=== PATIENT | female | born 1940 | race Caucasian/White ===

== ENCOUNTER 2021-08-07 11:57 | Inpatient (IN) | payer MEDICARE, SELFPAY ==
[2021-08-07] VITALS (34 sets, daily range): BP systolic 121–151; BP diastolic 52–73; PULSE 64–96; RESP 15–34; TEMP 36.2–37.2; O2SAT 89–99; BMI 38.1
--- NOTE | ~2021-08-07 | XR_ITS ---
XR chest 1V portable 08/10/2021 05:23 Indication: CHF. Dyspnea. Procedure: AP portable chest Comparison: 08/07/2021 Findings: Cardiomegaly. Pacemaker leads are stable. Diffuse bilateral airspace disease has progressed , consistent with edema. Small left pleural effusion. No pneumothorax. Impression: 1: Cardiomegaly with worsening pulmonary edema. Reviewed, dictated and finalized at location A. Impression: 1: Cardiomegaly with worsening pulmonary edema.
--- NOTE | ~2021-08-07 | BM_ITS ---
EXAMINATION: CCL bone marrow asp w bx diag DATE: 08/14/2021 13:09 INDICATION: Pancytopenia. TECHNIQUE: A time-out was performed to verify the patient's name, date of , and procedure to b e performed. The procedure including the risks, benefits, and alternatives was discussed with the pat ient. Risks discussed included bleeding and infection. The patient understood the risks and agreed to proceed. The skin overlying the left ilium was prepped and draped in usual sterile fashion. Anesth etic was administered with 1% lidocaine subcutaneously. An 11 gauge needle was inserted into the iliu m with fluoroscopic guidance. Bone marrow was aspirated. An 8 gauge needle was then inserted into the ilium with fluoroscopic guidance. A core bone marrow biopsy was obtained. There were no immediate co mplications. Fluoroscopy exposure time was 0.0 minutes. The total number of images was 16. FINDINGS: Real-time fluoroscopy demonstrates a marker overlying the left posterior superior iliac spi ne. IMPRESSION: 1. Fluoro-guided bone marrow aspiration. 2. Fluoro-guided bone marrow core biopsy. Reviewed, dictated and finalized at location A.
--- NOTE | ~2021-08-07 | XR_ITS ---
EXAMINATION: XR chest 2V EXAM DATE: 08/07/2021 17:26 INDICATION: wheezing/sob today HX pacemaker 07, CABG TECHNIQUE: Frontal and lateral projections of the chest obtained and reviewed. Comparison is made to prior examination from 01/27/2007. FINDINGS: There is a dual lead pacemaker/AICD seen with leads projecting over the expected locations of the right atrial appendage and right ventricle. Mild cardiomegaly. There is pulmonary vascular co ngestion. There is indistinct reticulation with a bibasal predominance which may indicate moderate pu lmonary edema. Pneumonia not excludable. There are small pleural effusions. There is no pneumothorax suspected. IMPRESSION: 1. Findings consistent with CHF exacerbation. 2. Pneumonia not excludable. Reviewed, dictated and finalized at location G.
--- NOTE | ~2021-08-07 | CT_ITS ---
EXAMINATION: CT abdomen pelvis w con EXAM DATE: 08/07/2021 15:17 INDICATION: Chronic abdominal pain, history of IBS. Symptoms for weeks. TECHNIQUE: Spiral CT of the abdomen and pelvis was performed following intravenous injection of 100 m L Omnipaque 350. Axial, coronal and sagittal images of the abdomen and pelvis were reviewed. The do se-length product (DLP) for this examination was 1075.96 mGy-cm. The exposure was tailored according to patient size (auto mA exposure control), and iterative reconstruction (ASIR) was used as addition al dose reduction technique. There is no prior study for comparison. FINDINGS: The main, central pulmonary arteries are dilated which can indicate elevated pulmonary yareli rial pressure, pulmonary arterial hypertension. Heart is normal in size. Moderate right, small to mod erate left pleural effusions. Scattered bibasilar subsegmental atelectasis. Pacemaker/AICD device. Th ere are prevascular, anterior mediastinal nodules of soft tissue density, could be lymphadenopathy wi th largest measuring 1.1 x 1.7 cm. This is incompletely imaged. The liver, spleen, adrenal glands and pancreas are otherwise unremarkable. Pancreatic body cystic mas s measuring 1.4 x 1.0 cm. The differential diagnosis includes pseudocyst, intraductal papillary mucin ous neoplasm (IPMN), mucinous cystic neoplasm (MCN), and the less common serous cystadenoma and neuro endocrine tumor. Correlate for history of pancreatitis. Liver, adrenal glands, spleen are unremarkable. Probable single gallstone identified in the gallbladd er neck. No biliary obstruction or pericholecystic inflammation.There is hyperdense right renal lesio n along the medial cortex lower pole, differential diagnosis including hemorrhagic cyst and solid rich ogeneously enhancing mass, measuring 1.3 cm; follow-up kidney ultrasound recommended. Uterine fundus , endometrium has somewhat thickened heterogeneous appearance, follow-up pelvic sonogram recommended. The bladder is unremarkable. There is no retroperitoneal or pelvic lymphadenopathy. There is mil d to moderate scattered arteriosclerotic disease. There are no findings to suggest appendicitis. The stomach and small bowel are unremarkable. There is colonic fluid, correlate for diarrhea. There is mild scattered colonic diverticulosis. There is n o adjacent inflammatory change to suggest diverticulitis. No free intraperitoneal gas. IMPRESSION: 1. Colonic fluid, correlate for diarrhea. Mild colonic diverticulosis. 2. Indeterminate right renal lower pole medial cortex 1.3 cm mass versus hemorrhagic cyst; recommend follow-up nonemergent ultrasound. 3. Incidental pancreatic cystic mass; recommend one-year follow-up CT with contrast. 4. Incidental anterior mediastinal masses could be mildly enlarged lymph nodes; follow-up chest CT C T without or with contrast recommended. 5. Incidental possible endometrial thickening; follow-up pelvic sonogram to evaluate possibility of endometrial cancer. 6. Moderate right, small to moderate left pleural effusions. Adjacent atelectasis. 7. Pulmonary arterial hypertension. 8. Cholelithiasis. Reviewed, dictated and finalized at location G. IMPRESSION: 1. Colonic fluid, correlate for diarrhea. Mild colonic diverticulosis. 2. Indeterminate right renal lower pole medial cortex 1.3 cm mass versus hemor rhagic cyst; recommend follow-up nonemergent ultrasound. 3. Incidental pancreatic cystic mass; recommend one-year follow-up CT with con trast. 4. Incidental anterior mediastinal masses could be mildly enlarged lymph nodes ; follow-up chest CT CT without or with contrast recommended. 5. Incidental possible endometrial thickening; follow-up pelvic sonogram to ev aluate possibility of endometrial canc
--- NOTE | 2021-08-07 12:08 | PC.NURSE ---
Patient presents to the ED via [facility] with c/o abdominal pain that has been ongoing for several weeks. Patient has been seen multiple times at [facility] for same complaint and diagnosed with IBS.
--- NOTE | 2021-08-07 14:14 | ECG_ITS ---
Measurements Intervals [place] Rate: 82 P: 49 [place]: 199 QRS: -56 QRSD: 170 T: 113 QT: 436 QTc: 510 Interpretive Statements SINUS RHYTHM WITH ELECTRONIC VENTRICULAR PACEMAKER ATYPICAL ECG NO PREVIOUS ECG AVAILABLE FOR COMPARISON Electronically Signed On 08-08-2021 11:10:12 CDT by Bennie Faith M.D.
[2021-08-07 14:47] LABS: Basophils Percent Auto 0.5 % (0.2-1.2); Eosinophils Percent Auto 0.5 % (0-4.4); Hematocrit 28.5 % (37.0-47.0); Hemoglobin 9.2 g/dL (12.0-15.0); Immature Granulocyte Absolute 0.02 K/mm3 (0.00-0.031); Lymphocytes Absolute Auto 0.43 K/mm3 (0.9-3.2); Lymphocytes Percent Auto 21.4 % (18.3-44.2); Mean Corpuscular HGB Conc 32.3 g/dl (32-36); Mean Corpuscular Hemoglobin 32.5 pg (26-34); Mean Corpuscular Volume 100.7 fl (80-100); Mean Platelet Volume 9.7 fl (7.4-10.4); Monocytes Absolute Auto 0.3 K/mm3 (0.1-0.6); Monocytes Percent Auto 15.9 % (2.6-8.5); Neutrophils Absolute Auto 1.2 K/mm3 (1.3-6.7); Neutrophils Percent Auto 60.7 % (45.5-73.1); Platelet Count Result 143 k/mm3 (150-375); Red Blood Count 2.83 M/mm3 (4.2-5.4); Red Cell Distribution Width 17.4 % (11.5-14.5)
[2021-08-07] MEDS: SODIUM CHLORIDE 0.9% IV 1,000 ML 125 ML IV CONT (14:47)
--- NOTE | 2021-08-07 14:49 | ED.ABDPAIN ---
HPI - Abdominal Pain General Chief Complaint: Abdominal Pain Stated Complaint: Abdominal Pain Time Seen by Provider: 08/07/21 13:44 Source: patient Mode of arrival: ambulatory Limitations: no limitations History of Present Illness HPI narrative: 80-year-old female presents today with complaints of increase in abdominal pain and abdominal bloating. Patient recently seen at [facility] for similar issues and discharged with follow-up plan to see Dr. Elizabeth. Today patient ate this morning and ended up with diarrhea and abdominal bloating. Patient states she has had diarrhea for over a year and is currently taking Imodium 4 times a day. Patient unsure of fevers but does endorse sweats. Patient denies any sick contacts. Patient states last year she was in [facility] for intussusception and since then is when she has had diarrhea. Related Data Allergies Allergy/AdvReac Type Severity Reaction Status Date / Time amlodipine Allergy Unknown IT CAUSES Verified 08/07/21 16:56 ME TO FLUSH Penicillins Allergy Unknown WELTS Verified 09/01/08 10:36 ciprofloxacin Allergy Unknown Verified 08/07/21 16:56 Review of Systems Review of Systems: CONSTITUTIONAL: Denies fever, chills, or sweats. EYES: Denies visual changes, redness, or discharge. ENT: Denies rhinorrhea, congestion, sore throat, or otalgia. CARDIOVASCULAR: Denies chest pain, palpitations, or edema. RESPIRATORY: Denies cough or dyspnea. GASTROINTESTINAL: Intermittent abdominal pain, nausea, diarrhea. GENITOURINARY: Denies dysuria or hematuria. SKIN: Denies rash or itching. MUSCULOSKELETAL: Denies back pain, joint pain, or myalgia. NEUROLOGIC: Denies headache, numbness, dizziness, or weakness. PSYCHIATRIC: Denies anxiety or depression. Exam Narrative: GENERAL: Well-appearing, well-nourished, and in no acute distress. HEAD: Normocephalic, atraumatic. EYES: PERRLA and EOMI. ENT: Nares clear, no rhinorrhea or epistaxis. Mucous membranes moist. Oropharynx without tonsillar hypertrophy exudate or other lesions. Bilateral TMs pearly augustine nonbulging NECK: Supple. No adenopathy or masses. No carotid bruits or JVD CHEST: Clear to auscultation. No respiratory distress. No wheezes rales or rhonchi HEART: Regular rate and rhythm. No murmur heard. Normal peripheral pulses. ABDOMEN: Right lower quadrant tenderness. Distended abdomen. Hyperactive bowel sounds. EXTREMITIES: Normal range of motion. No edema. SKIN: Warm, dry, no rash. NEURO: No focal deficits. Alert and oriented x3. PSYCH: Normal mood and affect. Course Reevaluation(s) Reevaluation #1: Patient with some abdominal discomfort at this time. HGB from 1 month ago 10.9. occult blood negative. Date: 08/07/21 Time: 16:18 Reevaluation #2: Dr. Christianson consulted. Plan follow up as outpatient. AFter talking to MD patient having increased abdominal pain at this time. Bentyl IM ordered. Date: 08/07/21 Time: 16:35 Reevaluation #3: Patient currently with minimal pain but desaturated into the low 80's. Wheezing noted to left lobes. Patient put on 3 l nc. Date: 08/07/21 Time: 17:09 Additional Reevaluation(s): 1905 Patient resting comfortably.. Oxygen currently off. Saturations 90 to 93%. Case discussed with Dr. Miranda. Patient to be admitted for acute hypercarbic/hypoxic respiratory failure. Sister at bedside all aware of plan of care. Daughter on phone and updated. All in agreement with admission. Vital Signs Vital signs: Vital Signs Pulse Rate 86 08/07/21 12:07 Respiratory Rate 18 08/07/21 12:07 Blood Pressure 146/59 H 08/07/21 12:07 Pulse Oximetry 94 08/07/21 12:07 Temperature 37.2 C 08/07/21 17:11 Pulse Rate 72 08/07/21 18:55 Respiratory Rate 24 H 08/07/21 18:55 Blood Pressure 150/70 H 08/07/21 18:55 Pulse Oximetry 98 08/07/21 18:55 MDM - Abdominal Pain Differential Diagnosis Differential diagnosis: Likely abdominal pain, acute appendicitis, constipation, diverticulitis and g
[2021-08-07 14:58] LABS: Alanine Aminotransferase 12 U/L (4-35); Alkaline Phosphatase 62 U/L (38-126); Anion Gap 4 mmol/L (8-16); Aspartate Amino Transferase 33 U/L (14-36); Bilirubin,Total 0.4 mg/dL (0.2-1.3); Blood Urea Nitrogen 17 mg/dL (7-17); Calcium 7.9 mg/dL (8.4-10.2); Carbon Dioxide 30 mmol/L (22-30); Chloride 103 mmol/L (98-107); Estimated Glomerular Filt Rate > 60; Glucose 148 mg/dL (65-110); Lipase 22 U/L (23-300); Potassium 3.9 mmol/L (3.4-5.0); Sodium 137 mmol/L (137-145)
[2021-08-07 15:12] LABS: Ovalocytes 1+ (NORMAL); Platelet Estimate Adequate (Adequate)
[2021-08-07 15:13] LABS: Smudge Cells FEW
[2021-08-07 15:16] LABS: Troponin I 0.032 ng/mL (0.000-0.034)
--- NOTE | 2021-08-07 17:03 | PC.NURSE ---
RN to bedside to check on patient after monitor alarming. SpO2 reading 83-85% with good pleth. Pt appeared to be sleeping, RN called patient's name and instructed to take some deep breaths. Pt was already awake and SpO2 did not improve with deep breaths. RN placed patient on 2L NC and SpO2 improved to 96%. RN listened to lung sounds and now sounds wet, left side worse than right. FIELD MARKETING SPECIALIST made aware and called to bedside. Plan for chest x-ray. Pt reports she feels better with supplemental oxygen.
[2021-08-07 18:16] LABS: Alveolar/Arterial O2 Gradient 50.7 mmHg; Base Excess ABG 4.7 mEq/l (+/-2.0); Fractional Inspired Oxygen 28 %; HCO3 ABG 30.4 mEq/l (22.0-26.0); Oxygen Content ABG 13.1 %vol (16.0-22.0); Oxygen Saturation ABG 96.5 % (95.0-100.0); Oxyhemoglobin 94.8 % THb (90.0-100.0); PCO2 ABG 51.4 mmHg (35.0-45.0); PO2 ABG 88.3 mmHg (80.0-100.0); PO2 FiO2 Ratio Arterial Blood 3.15 %; Total Hemoglobin 9.7 g/dL (12.0-18.0)
[2021-08-07 18:17] LABS: Device NASAL CANNULA; Modified Allen's Test Pass; Site Drawn LEFT RADIAL
[2021-08-07 18:25] LABS: NT Pro B Type Natriuretic Pept 16200 pg/mL (5-100)
[2021-08-07] MEDS: DICYCLOMINE HCL INJ 20 MG/2 ML VIAL IM (18:51)
--- NOTE | 2021-08-07 18:53 | PC.NURSE ---
Pt called out needing to urinate. By the time staff able to get into her room, patient urinated already. Pt cleaned up. Still unable to obtain sample. Updated on admission plan.
--- NOTE | 2021-08-07 19:16 | PM.IMHP ---
H&P: HPI History of Present Illness Date/Time: 08/07/21 19:16 Chief Complaint: Abdominal pain Narrative: This is an 80-year-old female with past medical history significant for congestive heart failure, pacemaker insitu, chronic abdominal pain, chronic diarrhea. Patient just recently discharged from the hospital where she was treated for diverticulitis. Patient with severe episodes of abdominal pain was supposed to follow-up in the outpatient setting with Dr. Elizabeth however she comes today to our emergency room after she had 1 episode of severe abdominal pain which is diffused and has been having episodes of diarrhea as well. Preliminary workup was significant for chest x-ray with bilateral infiltrates, brain natriuretic peptide was elevated above 16,000. Patient denies any fevers, any rigors, any chills, any cough ,any sputum production or shortness of breath, she has been feeling very fatigued and states that her abdominal girth is increased she also states that she is wearing compression stockings however she has bilateral lower extremity swelling. Patient has been taking Imodium for diarrhea. Patient also has had significant weight loss in the last year or so. Decision has been made to admit the patient for further evaluation management and treatment. Review of Systems Review of Systems: Abdominal pain, diarrhea, increased abdominal girth, bilateral lower extremity edema, shortness of breath. Constitutional: Constitutional: Denies chills, Reports fatigue, Denies fever(s), Denies malaise, Denies night sweats, Reports weakness and Reports weight loss Eyes: Eyes: Denies change in vision ENT: Denies dysphagia, Denies vertigo, Denies dizziness, Denies nasal congestion, Denies nasal discharge, Denies nasal obstruction and Denies odynophagia Cardiovascular: Cardiovascular: Denies syncope, Reports pedal edema, Denies irregular heart rhythm, Reports leg edema, Denies radiating jaw, neck or arm pain, Denies palpitations, Reports dyspnea, Denies dyspnea on exertion and Reports orthopnea Respiratory: Respiratory: Denies cough and Denies wheezing Gastrointestinal: Gastrointestinal: Reports abdominal pain, Denies dyspepsia, Denies heartburn, Reports diarrhea, Denies nausea and Denies vomiting Genitourinary: Genitourinary: Denies dysuria Musculoskeletal: Musculoskeletal: Denies back pain and Denies arthralgias Integumentary/Breasts: Skin/Breast: Denies rash Neurologic: Denies vertigo, Denies dizziness, Denies focal weakness and Denies Sensory deficit (Neuro) Psychiatric: Psychiatric: Reports no additional psychiatric complaints and Reports as per HPI Endocrine: Endocrine: Denies cold intolerance, Denies heat intolerance, Denies polyphagia, Denies polydipsia and Denies palpitations Hematologic/Lymphatic: Hematologic/Lymphatic: Reports no additional hematologic/lymphatic complaints and Reports as per HPI Allergic/Immunologic: Allergic/Immunologic: Reports no additional allergic/immunologic complaints and Reports as per HPI [facility] Family History Family History (Updated 08/07/21 @ 23:18 by Samra Galvez RN) Father Acute myocardial infarction Mother Bone cancer Sibling Breast cancer Bone cancer Social History Social History Smoking status: Former smoker Tobacco type: cigarettes Alcohol intake: never Substance use: never Substance use type: does not use Spiritual care concerns: No Meds Home Medications and Allergies Home Medications Medication Instructions Recorded Confirmed Type dicyclomine 10 mg QID 08/07/21 08/07/21 History furosemide 20 mg DAILY 08/07/21 08/07/21 History lisinopril 10 mg PO DAILY 08/07/21 08/07/21 History loperamide 2 mg PO QID 08/07/21 08/07/21 History nebivolol [Bystolic] 10 mg PO DAILY 08/07/21 08/07/21 History potassium chloride 10 meq PO DAILY 08/07/21 08/07/21 History Allergies Allergy/AdvReac Type Severity Reaction Statu
[2021-08-07] MEDS: FUROSEMIDE INJ 40 MG/4 ML VIAL IV PUSH (21:01)
[2021-08-07 21:16] LABS: SARS-CoV-2 RNA PCR Negative
[2021-08-07 21:34] LABS: Add Urine Microscopic? YES; Appearance Urine Cloudy (Clear); Bilirubin Urine Negative (Negative); Blood Urine Negative (Negative); Color Urine Yellow (Yellow); Glucose Urine UA Negative (Negative); Ketones Urine Negative (Negative); Leukocyte Esterase Ur Negative LEU/UL (Negative); Mucus Urine Rare /lpf; Nitrate Urine Negative (Negative); Protein Urine Negative (Negative); RBC Urine 0-2 /hpf (0-2); Specific Grav Ur 1.026 (1.001-1.035); Squamous Epithelial Cell Urine Rare /hpf (Few); Urobilinogen Urine Negative mg/dL (<2.0); WBC Urine 0-3 /hpf
--- NOTE | 2021-08-07 22:33 | ADMGEN ---
This patient, Christina Dahl, was admitted to IMU Room 205-01. Patient/family oriented to hospital policies and general routines including ID bracelet, bed and alarms, visiting hours, pain management, procedures, bathroom and other care routines, personal items, smoking policy, room service/diet, and visiting hours. Information on how to activate the Rapid Response Team has been discussed. Patient/Family are encouraged to report perceived risks to care and to ask questions if they do not understand what they are told or what they should do.
[2021-08-08] VITALS (19 sets, daily range): BP systolic 118–138; BP diastolic 47–53; PULSE 61–76; RESP 15–21; TEMP 36.3–36.8; O2SAT 93–98; BMI 38.1
[2021-08-08] MEDS: AZTREONAM 2 GM in SODIUM CHLORIDE 0.9% IV 100 ML 200 ML IVPB (04:25)
[2021-08-08 05:33] LABS: Basophils Percent Auto 0.6 % (0.2-1.2); Eosinophils Percent Auto 2.2 % (0-4.4); Hematocrit 25.1 % (37.0-47.0); Immature Granulocyte Absolute 0.01 K/mm3 (0.00-0.031); Immature Granulocyte Percent A 0.6 % (0-0.5); Lymphocytes Absolute Auto 0.51 K/mm3 (0.9-3.2); Lymphocytes Percent Auto 28.3 % (18.3-44.2); Mean Corpuscular HGB Conc 31.9 g/dl (32-36); Mean Corpuscular Hemoglobin 32.8 pg (26-34); Mean Corpuscular Volume 102.9 fl (80-100); Mean Platelet Volume 10.1 fl (7.4-10.4); Monocytes Absolute Auto 0.4 K/mm3 (0.1-0.6); Monocytes Percent Auto 22.2 % (2.6-8.5); Neutrophils Absolute Auto 0.8 K/mm3 (1.3-6.7); Neutrophils Percent Auto 46.1 % (45.5-73.1); Platelet Count Result 148 k/mm3 (150-375); Red Blood Count 2.44 M/mm3 (4.2-5.4); Red Cell Distribution Width 17.4 % (11.5-14.5)
[2021-08-08 05:48] LABS: Anion Gap 3 mmol/L (8-16); Blood Urea Nitrogen 15 mg/dL (7-17); Calcium 7.7 mg/dL (8.4-10.2); Carbon Dioxide 32 mmol/L (22-30); Chloride 103 mmol/L (98-107); Estimated Glomerular Filt Rate > 60; Glucose 91 mg/dL (65-110); Potassium 3.5 mmol/L (3.4-5.0); Sodium 138 mmol/L (137-145)
[2021-08-08 06:10] LABS: White Blood Count 1.8 K/mm3 (4.5-10.0)
[2021-08-08] MEDS: PSYLLIUM POWDER PACKET 1 PACKET PO ×2 (08:14→20:05)
[2021-08-08] MEDS: DICYCLOMINE HCL 10 MG CAPSULE BY MOUTH ×3 (08:15→20:05)
[2021-08-08] MEDS: FUROSEMIDE INJ 40 MG/4 ML VIAL 20 MG IV PUSH ×2 (08:19→18:05)
[2021-08-08] MEDS: NEBIVOLOL HCL 5 MG TABLET 10 MG PO (08:23)
--- NOTE | 2021-08-08 10:12 | P.PNIM_ITS ---
Progress Note: A&P Assessment and Plan (1) Hypoxia: Code(s): R09.02 - Hypoxemia Status: Acute Assessment and Plan: Patient presents with abdominal pain and noted to have hypoxia. * ABG 7.39/51/88 on 2 L. * ED note states hypoxia but without distress. * Mildly elevated pCO2 is probably chronic and not acute given the normal pH * May have undiagnosed sleep apnea * Chest x-ray is consistent with CHF. Cannot exclude pneumonia. * PE less likely given other more obvious findings explain hypoxia. Also no tachycardia * Hypoxia related to CHF exacerbation. * Wean oxygen as tolerated. Check ApneaLink. (2) Acute on chronic congestive heart failure: Code(s): I50.9 - Heart failure, unspecified Status: Acute Assessment and Plan: Patient presents with abdominal symptoms but noted to have evidence of CHF exacerbation. * BNP 16 K. Chest x-ray consistent with CHF. * Patient complaining of pedal edema x 1 month. Consider right-sided failure if she has undiagnosed sleep apnea. * Suspect fluid overload related to recent hospitalization. Related to anemia? * Started on IV Lasix. * Will check Echocardiogram * CHF teaching. Strict I's and O's. Daily weights. (3) Abdominal pain: Code(s): R10.9 - Unspecified abdominal pain Status: Acute Assessment and Plan: Patient with abdominal pain associated diarrhea that is longstanding * CT abdomen/pelvis showing colonic fluid and multiple incidental findings but no concerning finding to explain her symptoms. * No liver lesions or other findings to suggest carcinoid. * She does have city water and does filter water making parasites less likely. * GI consult. Check stool studies. Check stool guaiac. Check celiac. * Obtain old records (4) Chronic diarrhea: Code(s): K52.9 - Noninfective gastroenteritis and colitis, unspecified Status: Acute Assessment and Plan: Suspect related to her chronic abdominal pain. As above. (5) Lung infiltrate: Code(s): R91.8 - Other nonspecific abnormal finding of lung field Status: Acute Assessment and Plan: Patient with cough and shortness of breath. * Chest x-ray shows bibasilar predominance of reticulation. CT scan shows scattered bibasilar subsegmental atelectasis with bilateral pleural effusions. * Admitting provider was concerned about pneumonia so aztreonam and vancomycin started for possible Hcap * White count was 2000 and on repeat 1800 today. See below * Blood cultures collected. * Feel pneumonia less likely so will hold on antibiotics and follow clinically (6) Pancytopenia: Code(s): D61.818 - Other pancytopenia Status: Acute Assessment and Plan: Patient presents for abdominal pain found to have pancytopenia * White count 2000 with ANC 1220 but with monocytosis to suggest rebuilding; repeat 1800 with ANC 830 * Immature granulocytes slightly elevated. * Macrocytic anemia noted with hemoglobin 9.2 at his dropped to 8.0. * Platelet count at 143K and stable. * Consider bone marrow infiltrative process; consider chronic from autoimmune (has AklSpond) * Heme Onc consult. Check baseline labs Additional Plan DVT Proph - SCDs Subjective Date/time seen: 08/08/21 10:12 Interval history: 80yo female with CHF, PM and chronic diarrhea here for abdominal pain. Patient states she was in [facility] in [facility] in June 2020 for what sounds like intussusception. This was treated nonsurgically. Since that time, she has had chronic diarrhea
--- NOTE | 2021-08-08 10:12 | PM.IMPN ---
Progress Note: A&P Assessment and Plan (1) Hypoxia: Code(s): R09.02 - Hypoxemia Status: Acute Assessment and Plan: Patient presents with abdominal pain and noted to have hypoxia. ABG 7.39/51/88 on 2 L. ED note states hypoxia but without distress. Mildly elevated pCO2 is probably chronic and not acute given the normal pH May have undiagnosed sleep apnea Chest x-ray is consistent with CHF. Cannot exclude pneumonia. PE less likely given other more obvious findings explain hypoxia. Also no tachycardia Hypoxia related to CHF exacerbation. Wean oxygen as tolerated. Check ApneaLink. (2) Acute on chronic congestive heart failure: Code(s): I50.9 - Heart failure, unspecified Status: Acute Assessment and Plan: Patient presents with abdominal symptoms but noted to have evidence of CHF exacerbation. BNP 16 K. Chest x-ray consistent with CHF. Patient complaining of pedal edema x 1 month. Consider right-sided failure if she has undiagnosed sleep apnea. Suspect fluid overload related to recent hospitalization. Related to anemia? Started on IV Lasix. Will check Echocardiogram CHF teaching. Strict I's and O's. Daily weights. (3) Abdominal pain: Code(s): R10.9 - Unspecified abdominal pain Status: Acute Assessment and Plan: Patient with abdominal pain associated diarrhea that is longstanding CT abdomen/pelvis showing colonic fluid and multiple incidental findings but no concerning finding to explain her symptoms. No liver lesions or other findings to suggest carcinoid. She does have city water and does filter water making parasites less likely. GI consult. Check stool studies. Check stool guaiac. Check celiac. Obtain old records (4) Chronic diarrhea: Code(s): K52.9 - Noninfective gastroenteritis and colitis, unspecified Status: Acute Assessment and Plan: Suspect related to her chronic abdominal pain. As above. (5) Lung infiltrate: Code(s): R91.8 - Other nonspecific abnormal finding of lung field Status: Acute Assessment and Plan: Patient with cough and shortness of breath. Chest x-ray shows bibasilar predominance of reticulation. CT scan shows scattered bibasilar subsegmental atelectasis with bilateral pleural effusions. Admitting provider was concerned about pneumonia so aztreonam and vancomycin started for possible Hcap White count was 2000 and on repeat 1800 today. See below Blood cultures collected. Feel pneumonia less likely so will hold on antibiotics and follow clinically (6) Pancytopenia: Code(s): D61.818 - Other pancytopenia Status: Acute Assessment and Plan: Patient presents for abdominal pain found to have pancytopenia White count 2000 with ANC 1220 but with monocytosis to suggest rebuilding; repeat 1800 with ANC 830 Immature granulocytes slightly elevated. Macrocytic anemia noted with hemoglobin 9.2 at his dropped to 8.0. Platelet count at 143K and stable. Consider bone marrow infiltrative process; consider chronic from autoimmune (has AklSpond) Heme Onc consult. Check baseline labs Additional Plan DVT Proph - SCDs Subjective Date/time seen: 08/08/21 10:12 Interval history: 80yo female with CHF, PM and chronic diarrhea here for abdominal pain. Patient states she was in [facility] in [facility] in June 2020 for what sounds like intussusception. This was treated nonsurgically. Since that time, she has had chronic diarrhea. She has had a 28 lb weight loss. She does have ankylosing spondylitis. She states this inhibits her from having colonoscopies. Her last colonoscopy was about 5 years ago. More recently patient was at [facility] and was discharged on July 31 after being hospitalized for abdominal pain found to have diverticulitis. Patient denies any melena or hematochezia. Her abdominal pain occurs after a bowel movement or if s
[2021-08-08 11:30] LABS: Immature Reticulocyte Fraction 24.4 % (3.0-15.9); Reticulocyte Hemoglobin Conten 35.5 pg (28.2-35.7); Reticulocyte Percent 2.26 % (0.7-4.3); Reticulocytes Absolute 0.05 B/L (32.2-175.7)
[2021-08-08 11:42] LABS: Lactate Dehydrogenase 346 U/L (313-618)
[2021-08-08 12:09] LABS: Iron 37 ug/dL (37-170)
[2021-08-08 12:19] LABS: Percent Iron Saturation 29 % (20-50)
--- NOTE | 2021-08-08 12:41 | PDONCCN ---
HPI - Date of Consult Date/Time: 08/08/21 12:41 Requesting Physician: Cole Chu MD Primary Care Provider: Torin Marcus, - Consult Narrative Reason for consult: Pancytopenia Narrative: Christina Dahl is a 80 year old female with history of congestive heart failure and anemia with been dealing with chronic abdominal pain and diarrhea. She was found to have intestinal obstruction about a year ago and went to the [facility] in [place] we are obstruction resolved on his own without any surgery. She now came into the hospital with worsening abdominal pain and diarrhea. She denies any melena hematochezia. She has been complaining of tiredness and fatigue. Denies any fevers and chills. Labs showed WBC count of 1.8 with ANC of 800. Hemoglobin was 8.0 with low platelet of [id number]. She denies any bleeding. She denies any previous bone marrow disorders. CT abdomen and pelvis was performed on August 07 that showed colonic diverticulosis in determinate right lower renal pelvis mass, incidental pancreatic cystic mass, incidental anterior mediastinal mass could be mildly enlarged lymph node, incidental anteromedial thickening and moderate right and small to moderate left pleural effusion. Patient has history of anemia and has been taking oral iron once a day for almost 1 year duration. Her last colonoscopy was more than 5 years ago. She is scheduled to see Dr. Elizabeth on August 17. Review of Systems - Review of Systems All systems reviewed & are unremarkable except as noted in HPI and bel - Neurologic Reports weakness, Denies vertigo, Denies syncope, Denies focal weakness, Denies sensory deficit [facility] Family History: Family History (Last Updated 08/07/21 @ 23:18 by Samra Galvez RN) Father Acute myocardial infarction Mother Bone cancer Sibling Breast cancer Bone cancer - Social History Social History: Social History (Last Reviewed 08/07/21 @ 16:18 by Jeanne Hargrove APRN) Alcohol Use: Alcohol intake: never Substance Use: Substance use: never Substance use type: does not use Others: Spiritual care concerns: No Smoking Status: Smoking status: Former smoker Tobacco type: cigarettes Approximate Smoking End Date: 1960 Meds Home Medications Medication Instructions Recorded Confirmed Type dicyclomine 10 mg QID 08/07/21 08/07/21 History furosemide 20 mg DAILY 08/07/21 08/07/21 History lisinopril 10 mg PO DAILY 08/07/21 08/07/21 History loperamide 2 mg PO QID 08/07/21 08/07/21 History nebivolol [Bystolic] 10 mg PO DAILY 08/07/21 08/07/21 History potassium chloride 10 meq PO DAILY 08/07/21 08/07/21 History Allergies Allergy/AdvReac Type Severity Reaction Status Date / Time amlodipine Allergy Unknown IT CAUSES Verified 08/07/21 16:56 ME TO FLUSH Penicillins Allergy Unknown WELTS Verified 09/01/08 10:36 ciprofloxacin Allergy Unknown Verified 08/07/21 16:56 Results - Labs CBC & Chem 7: 08/08/21 04:54 08/08/21 04:54 Labs: Short CBC 08/07/21 08/08/21 Range/Units 14:40 04:54 WBC 2.0 L 1.8 L* (4.5-10.0) K/mm3 Hgb 9.2 L 8.0 L (12.0-15.0) g/dL Hct 28.5 L 25.1 L (37.0-47.0) % Plt Count 143 L 148 L (150-375) k/mm3 BMP 08/07/21 08/08/21 14:40 04:54 Sodium 137 138 Potassium 3.9 3.5 Chloride 103 103 Carbon Dioxide 30 32 H BUN 17 15 Creatinine 0.80 0.80 Glucose 148 H 91 Calcium 7.9 L 7.7 L Cardiac Enzymes 08/07/21 Range/Units 14:40 Troponin I 0.032 (0.000-0.034) ng/mL Liver Function 08/07/21 Range/Units 14:40 Total Bilirubin 0.4 (0.2-1.3) mg/dL AST 33 (14-36) U/L ALT 12 (4-35) U/L Alkaline Phosphatase 62 (38-126) U/L Albumin 3.0 L (3.5-5.1) g/dL Urine 08/07/21 Range/Units 21:10 Urine Color Yellow (Yellow) Urine Appearance Cloudy H (Clear) Urine pH 5.0 (5.0-9.0) Ur Specific [place] 1.026 (1.001-1.035) U
[2021-08-08 12:55] LABS: Folic Acid > 20.0 ng/mL (2.76->20)
[2021-08-08 13:57] LABS: Free T4 Free Thyroxine Reflex 1.64 ng/dL (0.78-2.19)
--- NOTE | 2021-08-08 14:14 | WPDGICN ---
Assessment and Plan Assessment and plan (1) Chronic diarrhea: Code(s): K52.9 - Noninfective gastroenteritis and colitis, unspecified Status: Acute Assessment and Plan: for almost a year, pending stool samples treated for diverticulitis in the past and received also antibiotics agree with celiac serology, also inflammatory markers will do a sigmoidoscopy to assess if colitis, also get random biopsies (2) Abdominal pain: Code(s): R10.9 - Unspecified abdominal pain Status: Acute Assessment and Plan: intermittent reviewed CT scan (3) Acute on chronic congestive heart failure: Code(s): I50.9 - Heart failure, unspecified Status: Acute Assessment and Plan: stable and comfortable now (4) Pancytopenia: Code(s): D61.818 - Other pancytopenia Status: Acute Assessment and Plan: hematology on board may need BM biopsy based on work up pending spep (5) Acute hypercapnic respiratory failure: Code(s): J96.02 - Acute respiratory failure with hypercapnia Status: Acute GI Consult Note Consult date/time: 08/08/21 14:14 Reason for consult: diarrhea, abdominal pain HPI: Christina Dahl is a 80 year old female history of congestive heart failure, ankylosing spondylitis and admission at [facility] in [facility] in June 2020 for colon intussusception that was treated nonsurgically. Since that time, she has had chronic diarrhea and had accidents several times, also 28 lb weight loss. She had several colonoscopies since her 50's every 3-5 years because polyps (Dr Marcus her PCP used to do her colonoscopies, last time about 5 years ago and told last time that was a difficult one and recommended against one). Recently admitted at [place] [facility] and was discharged on July 31 after being hospitalized for abdominal pain, had diverticulitis. This time she has been having abdominal cramping, worse after eating, it was severe and came to hospital. She has been using imodium and bentyl. She has been complaining of tiredness and fatigue. Labs showed WBC count of 1.8 with ANC of 800, normal liver enzymes and LDH. Hemoglobin was 8.0 with low platelet of [id number]. She denies any bleeding. 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 Hematology on board because finding of pancytopenia. Also treated for CHF exacerbation, [place] catheter placed. Review of Systems Constitutional: Constitutional: Reports fatigue and Reports weight loss Eyes: Eyes: Denies blurry vision ENT: Reports Normal hearing present Cardiovascular: Cardiovascular: Denies chest pain Respiratory: Respiratory: Denies wheezing Gastrointestinal: Gastrointestinal: Reports abdominal pain and Reports diarrhea Genitourinary: Genitourinary: Denies hematuria Musculoskeletal: Musculoskeletal: Denies neck pain Integumentary/Breasts: Skin/Breast: Denies dry skin Neurologic: Denies headache(s) Psychiatric: Psychiatric: Denies behavioral changes [facility] Family History Family History (Updated 08/07/21 @ 23:18 by Samar Galvez RN) Father Acute myocardial infarction Mother Bone cancer Sibling Breast cancer Bone cancer Social History Social History Smoking status: Former smoker Tobacco type: cigarettes Alcohol intake: never Substance use: never Substance use type: does not use Spiritual care concerns: No Meds Home Medications and Allergies Home Medications Medication Instructions Recorded Confirmed Type dicyclomine 10 mg QID 08/07/21 08/07/21 History furosemide 20 mg DAILY 08/07/21 08/07/21 History lisinopril 10 mg PO DAILY 08/07/21 08/07/21 History loperamide 2 mg PO QID 08/07/21 08/07/21 History nebivolol [Bystolic
[2021-08-08 14:42] LABS: Toxigenic C. Diff NEGATIVE (NEGATIVE)
[2021-08-08 15:28] LABS: IFOB Positive Control Positive; Immunochemical Fecal Occult Bl Negative (N)
[2021-08-08] MEDS: BISACODYL 5 MG TABLET EC 20 MG PO (18:04)
[2021-08-08] MEDS: polyethylene glycoL 3350 238 GM BOTTLE PO (18:25)
--- NOTE | 2021-08-08 20:29 | PCRCNOTE ---
Pt ordered overnight ApneaLink study. Unable to perform tonight due to colonoscopy prep. Will attempt to perform night of 08/09.
[2021-08-08 22:50] LABS: Total Triiodothyronine (T3) 0.71 NG/ML (0.97-1.69)
[2021-08-09] VITALS (18 sets, daily range): BP systolic 108–150; BP diastolic 41–70; PULSE 64–82; RESP 15–31; TEMP 36.3–37.2; O2SAT 90–100
--- NOTE | 2021-08-09 | ECHO_ITS ---
Patient Info Name: Christina Dahl Age: 80 years : 1940 Gender: Female Ht: 57 in Wt: 167 lbs BSA: 1.79 m2 HR: 72 bpm BP: 150 / 62 mmHg Heart Rhythm: Sinus Rhythm Technical Quality: Fair Exam Date: 08/09/2021 2:43 PM Exam Location: [facility] Patient Status: Inpatient Admit Date: 08/07/2021 Staff Ordering Physician: Amol Shahid MD [employer]: Kateryna Rodriguez RDCS Attending Provider: Cole Chu MD Exam Type: CA echo dop color flow w con Study Info Indications - CHF Complete two-dimensional, color flow and Doppler transthoracic echocardiogram is performed with contrast to opacify the left ventricle and to improve the deliniation of the left ventricle endocardial borders. Contrast/Agitated Saline Contrast/Ag. Saline: Definity Amount: 2.00 ml Administered By: Kateryna Rodriguez RDCS Existing IV Access: Yes IV Access Condition: patent with no signs of infiltration Summary 1. Left ventricular chamber dimension is normal. 2. Left ventricular systolic function is normal, estimated at 55-60%. 3. There is mildly increased left ventricular wall thickness. 4. The left ventricular diastolic function is grade I diastolic dysfunction. 5. The apical cap is akinetic. 6. The apical septum, apical lateral wall, apical inferior wall, apical anterior wall, mid inferior wall, and mid inferoseptal are hypokinetic. 7. Left atrial chamber dimension is mildly enlarged. 8. There is mild to moderate aortic valve regurgitation. 9. There is mild to moderate mitral valve regurgitation. 10. The mitral valve annulus is severely calcified. 11. There is mild tricuspid valve regurgitation. 12. Moderate pulmonary hypertension, estimated pulmonary arterial systolic pressure is 50 mmHg. Left Ventricle Left ventricular chamber dimension is normal. Left ventricular systolic function is normal, estimated at 55-60%. There is mildly increased left ventricular wall thickness. The left ventricular diastolic function is grade I diastolic dysfunction. The apical cap is akinetic. The apical septum, apical lateral wall, apical inferior wall, apical anterior wall, mid inferior wall, and mid inferoseptal are hypokinetic. All other harp appear normal. Right Ventricle Right ventricular chamber dimension is normal. Right ventricular systolic function is normal. Left Atria Left atrial chamber dimension is mildly enlarged. Right Atria Right atrial chamber dimension is normal. Atrial Septum Intact interatrial septum visualized by color flow imaging. Aortic Valve The aortic valve is trileaflet. There is mild aortic valve sclerosis. There is no aortic valve stenosis. There is mild to moderate aortic valve regurgitation. Pulmonic Valve The pulmonic valve is normal. There is no pulmonic valve stenosis. There is trace pulmonic regurgitation. Mitral Valve There is no mitral valve stenosis. There is mild to moderate mitral valve regurgitation. The mitral valve annulus is severely calcified. Tricuspid Valve The tricuspid valve leaflets are normal. There is no significant tricuspid valve stenosis. There is mild tricuspid valve regurgitation. Moderate pulmonary hypertension, estimated pulmonary arterial systolic pressure is 50 mmHg. Pericardium/Pleural The pericardium appears normal. Inferior Vena Cava Normal inferior vena cava with <50% collapse upon inspiration consistent with elevated right atria
[2021-08-09 05:24] LABS: Basophils Percent Auto 0.5 % (0.2-1.2); Eosinophils Percent Auto 1.6 % (0-4.4); Hematocrit 25.1 % (37.0-47.0); Hemoglobin 8.3 g/dL (12.0-15.0); Immature Granulocyte Absolute 0.01 K/mm3 (0.00-0.031); Immature Granulocyte Percent A 0.5 % (0-0.5); Immature Platelet Fraction Pct 2.6 % (0.9-11.2); Lymphocytes Absolute Auto 0.46 K/mm3 (0.9-3.2); Mean Corpuscular HGB Conc 33.1 g/dl (32-36); Mean Corpuscular Hemoglobin 32.7 pg (26-34); Mean Corpuscular Volume 98.8 fl (80-100); Mean Platelet Volume 9.8 fl (7.4-10.4); Monocytes Absolute Auto 0.4 K/mm3 (0.1-0.6); Monocytes Percent Auto 21.4 % (2.6-8.5); Platelet Count Result 155 k/mm3 (150-375); Red Blood Count 2.54 M/mm3 (4.2-5.4); Red Cell Distribution Width 16.8 % (11.5-14.5)
[2021-08-09 05:34] LABS: Alanine Aminotransferase 12 U/L (4-35); Albumin Level 2.7 g/dL (3.5-5.1); Alkaline Phosphatase 54 U/L (38-126); Anion Gap 2 mmol/L (8-16); Aspartate Amino Transferase 28 U/L (14-36); Bilirubin,Total 0.5 mg/dL (0.2-1.3); Blood Urea Nitrogen 12 mg/dL (7-17); CRP 5.2 mg/dL (<1.0); Calcium 7.4 mg/dL (8.4-10.2); Carbon Dioxide 33 mmol/L (22-30); Chloride 100 mmol/L (98-107); Estimated Glomerular Filt Rate > 60; Glucose 112 mg/dL (65-110); Magnesium 1.3 mg/dL (1.6-2.3); Phosphorus 4.2 mg/dL (2.5-4.5); Potassium 3.3 mmol/L (3.4-5.0); Sodium 135 mmol/L (137-145)
[2021-08-09 05:48] LABS: White Blood Count 1.9 K/mm3 (4.5-10.0)
[2021-08-09 05:53] LABS: Erythrocyte Sedimentation Rate > 140 mm/hr (0-20)
[2021-08-09] MEDS: MAGNESIUM SULF 2 GM/WATER 50ML 2 GM/50 ML BAG IVPB (08:24)
[2021-08-09] MEDS: POTASSIUM CHLORIDE 20 MEQ PACKET (FOR LIQUID) 40 MEQ PO (08:24)
[2021-08-09] MEDS: NEBIVOLOL HCL 5 MG TABLET 10 MG PO (08:25)
--- NOTE | 2021-08-09 09:19 | PCOTNOTE ---
Attempted to see patient at 09:05am this date, RN stated to hold AM therapy this date due to patient leaving any minute for testing. Will continue per POC.
[2021-08-09] MEDS: FUROSEMIDE INJ 40 MG/4 ML VIAL 20 MG IV PUSH (09:46)
--- NOTE | 2021-08-09 12:12 | WPDANESEPPF ---
Anes - Initial Pre Proc Eval Procedure: Operation Date: 08/09/21 13:15 Proposed Procedures p Flexible Sigmoidoscopy - Tino Castaneda MD Date/Time: 08/09/21 12:12 Surgeon: Cole Chu MD Pre Op Diagnosis: Acute hypoxic and hypercarbic respiratory failure Patient Data Age: 80 Gender: F Height: 1.45 m Weight: 76.1 kg Last Vital Signs Temp 36.4 C L 08/09/21 08:00 Pulse 64 08/09/21 10:00 Resp 18 08/09/21 08:00 BP 150/62 H 08/09/21 08:00 Pulse Ox 98 08/09/21 08:00 Allergies Allergy/AdvReac Type Severity Reaction Status Date / Time amlodipine Allergy Unknown IT CAUSES Verified 08/09/21 12:09 ME TO FLUSH Penicillins Allergy Unknown WELTS Verified 08/09/21 12:09 ciprofloxacin Allergy Unknown Verified 08/09/21 12:09 Home Medications Medication Instructions Recorded Confirmed Type dicyclomine 10 mg QID 08/07/21 08/07/21 History furosemide 20 mg DAILY 08/07/21 08/07/21 History lisinopril 10 mg PO DAILY 08/07/21 08/07/21 History loperamide 2 mg PO QID 08/07/21 08/07/21 History nebivolol [Bystolic] 10 mg PO DAILY 08/07/21 08/07/21 History potassium chloride 10 meq PO DAILY 08/07/21 08/07/21 History Laboratory Tests 08/08/21 08/08/21 08/08/21 11:19 11:19 11:19 WBC RBC Hgb Hct MCV MCH MCHC RDW Plt Count MPV Immature Gran % (Auto) Neut % (Auto) Lymph % (Auto) [place] % (Auto) Eos % (Auto) Baso % (Auto) Lymph # (Auto) [place] # (Auto) Eos # (Auto) Baso # (Auto) Abs Immat Gran (auto) Absolute Neuts (auto) Absolute Nucleated RBC Nucleated RBC % % Immature Plt Fraction ESR Sodium Potassium Chloride Carbon Dioxide Anion Gap BUN Creatinine Estim Creat Clear Calc Estimated GFR Glucose Calcium Phosphorus Magnesium TIBC 127 ug/dL L ug/dL (261-462) % Saturation 29 % % (20-50) Ferritin 315.00 ng/mL H ng/mL (11.1-264) Total Bilirubin AST ALT Alkaline Phosphatase C-Reactive Protein Total Protein Albumin Vitamin B12 840.0 pg/mL pg/mL (239-931) Folate > 20.0 ng/mL H ng/mL (2.76->20) TSH (Reflex) 4.610 uIU/mL uIU/mL (0.465-4.68) Free T4 Total T3 Ur Random Creatinine U Random Total Protein Protein/Creatinin Ratio Urine Albumin U Gtpld-[id number] U [id number]-[id number] U Beta Globulin U Gamma Globulin U Abnormal Prot Band 1 U Abnormal Prot Band 2 U Abnormal Prot Band 3 Urine PEP Interpret Stl Occult Blood (IFOB) C. difficile (PCR) Ova & Parasites HONEY, Poly Interpret Negative HONEY, Complement Interp Not Performed Indirect Antiglob Test Negative 08/08/21 08/08/21 08/08/21 11:19 11:19 13:22 WBC RBC Hgb Hct MCV MCH MCHC RDW Plt Count MPV Immature Gran % (Auto) Neut % (Auto) Lymph % (Auto) [place] % (Auto) Eos % (Auto) Baso % (Auto) Lymph # (Auto) [place] # (Auto) Eos # (Auto) Baso # (Auto) Abs Immat Gran (auto) Absolute Neuts (auto) Absolute Nucleated RBC
[2021-08-09] MEDS: LACTATED RINGERS 1,000 ML 150 ML IV CONT (12:16)
--- NOTE | 2021-08-09 14:25 | PCPTNOTE ---
Attempted physical therapy evaluation, per patient she just returned from a procedure and is feeling weak. Patient would like the day to rest. RN aware and agreed with patient with therapy returning tomorrow for evaluation.
--- NOTE | 2021-08-09 14:43 | P.PNIM_ITS ---
Progress Note: A&P Assessment and Plan (1) Hypoxia: Code(s): R09.02 - Hypoxemia Status: Acute Assessment and Plan: Patient presents with abdominal pain and noted to have hypoxia. * ABG 7.39/51/88 on 2 L. * ED note states hypoxia but without distress. * Mildly elevated pCO2 is probably chronic and not acute given the normal pH * May have undiagnosed sleep apnea; unable to get ApneaLink last night * Chest x-ray is consistent with CHF. Cannot exclude pneumonia. Covid negative. * PE less likely given other more obvious findings explain hypoxia. Also no tachycardia * Hypoxia related to CHF exacerbation treated with lasix. * Wean oxygen as tolerated. (2) Acute on chronic congestive heart failure: Code(s): I50.9 - Heart failure, unspecified Status: Acute Assessment and Plan: Patient presents with abdominal symptoms but noted to have evidence of CHF ex acerbation. * BNP 16 K. Chest x-ray consistent with CHF. COVID swab negative. * Patient complaining of pedal edema x 1 month. Consider right-sided failure if she has undiagnosed sleep apnea. * Suspect fluid overload related to recent hospitalization. Related to anemia? * Good UOP yesterday. Continue IV Lasix * Check Echo * CHF teaching. Strict I's and O's. Daily weights. * Repeat CXR in the morning. (3) Abdominal pain: Code(s): R10.9 - Unspecified abdominal pain Status: Acute Assessment and Plan: Patient with abdominal pain with associated diarrhea that is longstanding * CT abdomen/pelvis showing colonic fluid and multiple incidental findings but no concerning finding to explain her symptoms. * No liver lesions or other findings to suggest carcinoid. * ESR>140. TIBC low but iron studies otherwise okay. * She does have city water and does filter water making parasites less likely. * GI consulted and appreciate their input * Colonoscopy performed today showing diverticulosis and polyps which were removed. Bx taken. * CDiff negative. Crypto/Girdia negative. Follow up on other stools studies. * Consider Whipples. Check PT/PTT. (4) Chronic diarrhea: Code(s): K52.9 - Noninfective gastroenteritis and colitis, unspecified Status: Acute Assessment and Plan: Suspect related to her chronic abdominal pain. As above. (5) Lung infiltrate: Code(s): R91.8 - Other nonspecific abnormal finding of lung field Status: Acute Assessment and Plan: Patient with cough and shortness of breath. * Chest x-ray shows bibasilar predominance of reticulation. CT scan shows scattered bibasilar subsegmental atelectasis with bilateral pleural effusions. * Admitting provider was concerned about pneumonia so aztreonam and vancomycin started for possible Hcap * White count was 2000 and on repeat 1900 today. See below * Blood cultures NGTD * Feel pneumonia less likely so antibiotics were held (6) Pancytopenia: Code(s): D61.818 - Other pancytopenia Status: Acute Assessment and Plan: Patient presents for abdominal pain found to have pancytopenia * White count 2000 with ANC 1220 but with monocytosis to suggest rebuilding; repeat 1900 today. * Macrocytic anemia noted with hemoglobin 9.2 at his dropped to 8.3 * Platelet count at 143K but normal now * Smear showing no schistocytes or blasts. * B12/Folate normal. Iron studies normal except for a low TIBC. * Consider bone marrow infiltrative process; consider chronic from autoimmune (ESR>140) * Heme Onc consulted and appreciate their input Additional Plan
--- NOTE | 2021-08-09 14:43 | PM.IMPN ---
Progress Note: A&P Assessment and Plan (1) Hypoxia: Code(s): R09.02 - Hypoxemia Status: Acute Assessment and Plan: Patient presents with abdominal pain and noted to have hypoxia. ABG 7.39/51/88 on 2 L. ED note states hypoxia but without distress. Mildly elevated pCO2 is probably chronic and not acute given the normal pH May have undiagnosed sleep apnea; unable to get ApneaLink last night Chest x-ray is consistent with CHF. Cannot exclude pneumonia. Covid negative. PE less likely given other more obvious findings explain hypoxia. Also no tachycardia Hypoxia related to CHF exacerbation treated with lasix. Wean oxygen as tolerated. (2) Acute on chronic congestive heart failure: Code(s): I50.9 - Heart failure, unspecified Status: Acute Assessment and Plan: Patient presents with abdominal symptoms but noted to have evidence of CHF exacerbation. BNP 16 K. Chest x-ray consistent with CHF. COVID swab negative. Patient complaining of pedal edema x 1 month. Consider right-sided failure if she has undiagnosed sleep apnea. Suspect fluid overload related to recent hospitalization. Related to anemia? Good UOP yesterday. Continue IV Lasix Check Echo CHF teaching. Strict I's and O's. Daily weights. Repeat CXR in the morning. (3) Abdominal pain: Code(s): R10.9 - Unspecified abdominal pain Status: Acute Assessment and Plan: Patient with abdominal pain with associated diarrhea that is longstanding CT abdomen/pelvis showing colonic fluid and multiple incidental findings but no concerning finding to explain her symptoms. No liver lesions or other findings to suggest carcinoid. ESR>140. TIBC low but iron studies otherwise okay. She does have city water and does filter water making parasites less likely. GI consulted and appreciate their input Colonoscopy performed today showing diverticulosis and polyps which were removed. Bx taken. CDiff negative. Crypto/Girdia negative. Follow up on other stools studies. Consider Whipples. Check PT/PTT. (4) Chronic diarrhea: Code(s): K52.9 - Noninfective gastroenteritis and colitis, unspecified Status: Acute Assessment and Plan: Suspect related to her chronic abdominal pain. As above. (5) Lung infiltrate: Code(s): R91.8 - Other nonspecific abnormal finding of lung field Status: Acute Assessment and Plan: Patient with cough and shortness of breath. Chest x-ray shows bibasilar predominance of reticulation. CT scan shows scattered bibasilar subsegmental atelectasis with bilateral pleural effusions. Admitting provider was concerned about pneumonia so aztreonam and vancomycin started for possible Hcap White count was 2000 and on repeat 1900 today. See below Blood cultures NGTD Feel pneumonia less likely so antibiotics were held (6) Pancytopenia: Code(s): D61.818 - Other pancytopenia Status: Acute Assessment and Plan: Patient presents for abdominal pain found to have pancytopenia White count 2000 with ANC 1220 but with monocytosis to suggest rebuilding; repeat 1900 today. Macrocytic anemia noted with hemoglobin 9.2 at his dropped to 8.3 Platelet count at 143K but normal now Smear showing no schistocytes or blasts. B12/Folate normal. Iron studies normal except for a low TIBC. Consider bone marrow infiltrative process; consider chronic from autoimmune (ESR>140) Heme Onc consulted and appreciate their input Additional Plan DVT Proph - SCDs Subjective Date/time seen: 08/09/21 14:43 Interval history: 80yo female with CHF, PM and chronic diarrhea here for abdominal pain. Patient tolerated the bowel prep well last night. Abdominal bloating pain has improved. No melena hematochezia. She has not wear oxygen home. No chest pain. Old records received: Hosp at [facility] 07/24-07/27 for abd pain and found to have enteritis, treated with Flagyl and
[2021-08-09] MEDS: PERFLUTREN LIPID MICROSPHERES 1.5 ML VIAL DILUTED TO 10 ML TOTAL VOLUME IV PUSH (16:31)
--- NOTE | 2021-08-09 16:31 | IVDEFINITY ---
Prior to administration of IV Definity the patient was educated on the risks and benefits of the imaging enhancing agent including potential adverse side effects. The patient verbalized understanding. Allergies were verified. No exclusion criteria were identified and at least one of the following inclusion criteria were met: 1) physician request, 2) patient technically difficult to image (per the [place] [employer] guidelines of two or more segments not discernable within the apical view), or 3) questionable left ventricular function. ?
[2021-08-09] MEDS: FUROSEMIDE INJ 40 MG/4 ML VIAL IV PUSH (17:00)
[2021-08-09] MEDS: DICYCLOMINE HCL 10 MG CAPSULE BY MOUTH ×2 (17:00→21:10)
[2021-08-09] MEDS: PSYLLIUM POWDER PACKET 1 PACKET PO (21:09)
[2021-08-10] VITALS (18 sets, daily range): BP systolic 120–153; BP diastolic 42–61; PULSE 58–86; RESP 16–21; TEMP 36.2–37.2; O2SAT 92–99
[2021-08-10 05:37] LABS: Basophils Percent Auto 0.6 % (0.2-1.2); Eosinophils Absolute Auto 0.1 K/mm3 (0-0.3); Eosinophils Percent Auto 3.6 % (0-4.4); Hematocrit 23.9 % (37.0-47.0); Hemoglobin 7.7 g/dL (12.0-15.0); Immature Granulocyte Absolute 0.01 K/mm3 (0.00-0.031); Immature Granulocyte Percent A 0.6 % (0-0.5); Immature Platelet Fraction Pct 3.3 % (0.9-11.2); Lymphocytes Absolute Auto 0.33 K/mm3 (0.9-3.2); Lymphocytes Percent Auto 19.5 % (18.3-44.2); Mean Corpuscular HGB Conc 32.2 g/dl (32-36); Mean Corpuscular Hemoglobin 32.1 pg (26-34); Mean Corpuscular Volume 99.6 fl (80-100); Mean Platelet Volume 10.2 fl (7.4-10.4); Monocytes Absolute Auto 0.4 K/mm3 (0.1-0.6); Monocytes Percent Auto 24.9 % (2.6-8.5); Neutrophils Absolute Auto 0.9 K/mm3 (1.3-6.7); Neutrophils Percent Auto 50.8 % (45.5-73.1); Platelet Count Result 131 k/mm3 (150-375); Red Cell Distribution Width 16.7 % (11.5-14.5)
[2021-08-10 05:45] LABS: INR 1.5; Prothrombin Time 17.8 Seconds (11.1-14.7)
[2021-08-10 05:46] LABS: Partial Thromboplastin Time 32.9 SECONDS (22.3-36.8)
[2021-08-10 05:50] LABS: Albumin Level 2.5 g/dL (3.5-5.1); Anion Gap 1 mmol/L (8-16); Blood Urea Nitrogen 14 mg/dL (7-17); Calcium 7.4 mg/dL (8.4-10.2); Carbon Dioxide 35 mmol/L (22-30); Chloride 100 mmol/L (98-107); Estimated Glomerular Filt Rate > 60; Glucose 114 mg/dL (65-110); Magnesium 1.7 mg/dL (1.6-2.3); Phosphorus 3.8 mg/dL (2.5-4.5); Potassium 3.6 mmol/L (3.4-5.0); Sodium 136 mmol/L (137-145)
[2021-08-10 05:57] LABS: White Blood Count 1.7 K/mm3 (4.5-10.0)
[2021-08-10 06:55] LABS: Anisocytosis 1+ (NORMAL); Hypochromasia 1+ (NORMAL); Ovalocytes 2+ (NORMAL); Platelet Estimate Adequate (Adequate)
[2021-08-10] MEDS: NEBIVOLOL HCL 5 MG TABLET 10 MG PO (08:29)
[2021-08-10] MEDS: FUROSEMIDE INJ 40 MG/4 ML VIAL IV PUSH ×2 (08:29→17:28)
[2021-08-10] MEDS: DICYCLOMINE HCL 10 MG CAPSULE BY MOUTH ×4 (08:29→20:36)
[2021-08-10] MEDS: PSYLLIUM POWDER PACKET 1 PACKET PO ×2 (08:30→20:36)
--- NOTE | 2021-08-10 10:13 | WPDGIPROGNO ---
Progress Note: A&P Assessment and Plan (1) Chronic diarrhea: Code(s): K52.9 - Noninfective gastroenteritis and colitis, unspecified Status: Acute Assessment and Plan: stool samples thus far negative, pending celiac serology had elevated inflammatory markers but non-specific, pending random colon biopsies. started on questran she is feeling better today (2) Pancytopenia: Code(s): D61.818 - Other pancytopenia Status: Acute Assessment and Plan: work up in progress, no major changes (3) Acute on chronic congestive heart failure: Code(s): I50.9 - Heart failure, unspecified Status: Acute Assessment and Plan: stable (4) Acute respiratory failure with hypoxia: Code(s): J96.01 - Acute respiratory failure with hypoxia Status: Acute Subjective Date/time seen: 08/10/21 10:13 Interval history: colonoscopy yesterday with mild diverticulosis, no colitis with pending biopsies, also polyps removed. Today did not have any more abdominal pain but had diarrhea after having breakfast, overall better. Review of Systems Review of Systems: All systems reviewed & are unremarkable except as noted in HPI and below Exam Const: General: comfortable and no acute distress HENMT: General nose exam: Normal nares present Eyes: General: appearance normal, both eyes and all related structures Neck: Neck: no JVD Resp: Auscultation: clear to auscultation bilaterally Cardio: Rate: regular rate Rhythm: regular rhythm GI: Inspection: non-distended GI Palp: Yes Soft to palpation and No Guarding due to palpation present (GI) Auscultation: normal bowel sounds Skin: General skin exam: normal color Neuro: Speech: normal speech Motor exam (neuro): Normal motor muscle tone present throughout Extrem: General: normal to inspection Psych: Mental Status: mental status grossly normal Objective Data Vital Signs Vital Signs: Vital Signs - 24 hr 08/09/21 12:00 08/09/21 12:12 08/09/21 13:18 Temperature 97.7 F 97.6 F Pulse Rate 69 70 68 Respiratory Rate 20 20 22 H Blood Pressure 147/70 H 138/57 L 108/41 L Pulse Oximetry 97 94 100 08/09/21 13:28 08/09/21 13:38 08/09/21 13:45 Temperature 97.5 F L Pulse Rate 67 64 82 Respiratory Rate 19 31 H 18 Blood Pressure 117/42 L 121/48 L 150/62 H Pulse Oximetry 100 100 98 08/09/21 14:00 08/09/21 16:00 08/09/21 18:00 Temperature 97.4 F L Pulse Rate 67 65 72 Respiratory Rate 20 Blood Pressure 138/44 L Pulse Oximetry 99 08/09/21 20:00 08/09/21 22:00 08/10/21 00:00 Temperature 98.8 F 97.5 F L Pulse Rate 69 72 65 Respiratory Rate 20 20 Blood Pressure 139/48 L 153/61 H Pulse Oximetry 90 90 92 08/10/21 02:00 08/10/21 04:00 08/10/21 06:00 Temperature 97.3 F L Pulse Rate 75 60 60 Respiratory Rate 16 Blood Pressure 142/48 H Pulse Oximetry 99 08/10/21 08:00 08/10/21 08:29 08/10/21 08:30 Temperature 97.3 F L Pulse Rate 62 59 L 70 Respiratory Rate 16 17 Blood Pressure 138/46 L Pulse Oximetry 97 98 Intake/Output Intake/Output: Intake & Output 08/07/21 08/08/21 08/09/21 08/10/21 23:59 23:59 23:59 23:59 Intake Total 1520 604 2643 690 Output Total 3100 2650 600 Balance 1000 -2390 180 90 Meds/Results Medications: Active Medications Generic Name Dose Route Start Last Admin Trade Name Freq PRN Reason Stop Dose Admin Cholestyramine Resin 4 gm 08/10/21 11:00 Cholestyramine (W/ Sugar) 4 Gm Powd.Pack PO QAM@1100 [facility] Dicyclomine HCl 10 mg 08/08/21 09:00 08/10/21 08:29 Dicyclomine Hcl 10 Mg Capsule BY MOUTH 08/13/21 23:00 10 mg QID WILLIAM Administration Furosemide 40 mg 08/09/21 17:00 08/10/21 08:29 Furosemide Inj 40 Mg/4 Ml Vial IV PUSH 40 mg BID WILLIAM Administration Nebivolol 10 mg 08/08/21 09:00 08/10/21 08:29 Nebivolol Hcl 5 Mg Tablet PO 10 mg DAILY WILLIAM Administration Psyllium Hydrophilic Mucilloid 1 packet 08/08/21 09:00
--- NOTE | 2021-08-10 10:53 | WPDCDIQUERY2 ---
CDI Query Clarification Request Chest X-Ray 08/07/21 17:33 IMPRESSION: 1. Findings consistent with CHF exacerbation. 2. Pneumonia not excludable. Acute on chronic congestive heart failure: -08/08 Hospitalist documented: - Heart failure, unspecified - Assessment and Plan: - Patient presents with abdominal symptoms but noted to have evidence of CHF exacerbation. -BNP 16 K. Chest x-ray consistent with CHF. -Patient complaining of pedal edema x 1 month. Consider right-sided failure if she has undiagnosed sleep apnea. -Suspect fluid overload related to recent hospitalization. Related to anemia? -Started on IV Lasix. -Will check Echocardiogram -CHF teaching. Strict I's and O's. Daily weights. For coding purposes, please clarify if Acute on Chronic congestive heart failure is: -Systolic -Diastolic -Combined -Other -Unable to determine <Charlotte Baig - Last Filed: 08/10/21 11:00>
[2021-08-10] MEDS: CHOLESTYRAMINE (W/ SUGAR) 4 GM POWD.PACK PO (12:42)
--- NOTE | 2021-08-10 15:26 | PCOTNOTE ---
Attempted to see patient this pm, however patient refused stating, Can we do it tomorrow? I feel so weak, and my feet are so swollen by this time of day. I would do better if we waited until tomorrow.
--- NOTE | 2021-08-10 15:34 | WPDANESPN ---
Anes - Prog Note Post-Op Date/Time: 08/10/21 15:34 Cardiovascular status: normal Respiratory status: normal Airway patency: baseline Mental status: baseline Post-Op hydration status: normal Vital Signs: Last Vital Signs Temp 97.1 F L 08/10/21 11:56 Pulse 62 08/10/21 12:00 Resp 20 08/10/21 11:56 BP 120/44 L 08/10/21 11:56 Pulse Ox 98 08/10/21 11:56 Pain Score (VAS): 0 I/O: Intake & Output 08/09/21 08/10/21 08/10/21 23:59 07:59 15:59 Intake Total 620 450 630 Output Total 1500 300 300 Balance -880 150 330 Laboratory Tests 08/10/21 05:12 08/10/21 05:12 08/10/21 08/10/21 08/10/21 05:12 05:12 05:12 WBC 1.7 L* RBC 2.40 L Hgb 7.7 L Hct 23.9 L MCV 99.6 MCH 32.1 MCHC 32.2 RDW 16.7 H Plt Count 131 L MPV 10.2 Immature Gran % (Auto) 0.6 H Neut % (Auto) 50.8 Lymph % (Auto) 19.5 [place] % (Auto) 24.9 H Eos % (Auto) 3.6 Baso % (Auto) 0.6 Lymph # (Auto) 0.33 L [place] # (Auto) 0.4 Eos # (Auto) 0.1 Baso # (Auto) 0.0 Abs Immat Gran (auto) 0.01 Absolute Neuts (auto) 0.9 L Absolute Nucleated RBC 0.0 Nucleated RBC % 0.0 Platelet Estimate Adequate % Immature Plt Fraction 3.3 Hypochromasia 1+ Anisocytosis 1+ Ovalocytes 2+ PT 17.8 H INR 1.5 APTT 32.9 Sodium 136 L Potassium 3.6 Chloride 100 Carbon Dioxide 35 H Anion Gap 1 L BUN 14 Creatinine 0.70 Estim Creat Clear Calc Not Reportable Estimated GFR > 60 Glucose 114 H Calcium 7.4 L Phosphorus 3.8 Magnesium 1.7 Albumin 2.5 L Microbiology 08/08/21 13:33 Stool Stool for WBCs - Final 08/08/21 13:33 Stool Escherichia coli Shiga Toxins - Final 08/08/21 13:33 Stool Campylobacter Antigen Assay - Final 08/08/21 13:33 Stool Cryptosporidium Exam - Final 08/08/21 13:33 Stool Giardia Antigen (TRACY) - Final Post-procedural complaints: none Patient Feedback: Patient satisfied with anesthetic care.
--- NOTE | 2021-08-10 15:51 | P.PNIM_ITS ---
Progress Note: A&P Assessment and Plan (1) Hypoxia: Code(s): R09.02 - Hypoxemia Status: Acute Assessment and Plan: Patient presents with abdominal pain and noted to have hypoxia. * ABG 7.39/51/88 on 2 L. * ED note states hypoxia but without distress. * Mildly elevated pCO2 is probably chronic and not acute given the normal pH * May have undiagnosed sleep apnea with ApneaLink showing AHI 13 and RI 13. * Despite being on 2L, she spent 49min with SpO2<88%. * Chest x-ray is consistent with CHF. Cannot exclude pneumonia. Covid negative. * PE less likely given other more obvious findings explain hypoxia. Also no tachycardia * Hypoxia related to CHF exacerbation treated with lasix. As below * Wean oxygen as tolerated. Increase O2 at night to 3L and repeat apnea link (2) Acute on chronic congestive heart failure: Code(s): I50.9 - Heart failure, unspecified Status: Acute Assessment and Plan: Patient presents with abdominal symptoms but noted to have evidence of Acute/Chronic Diastolic CHF exacerbation. * BNP 16K. Chest x-ray consistent with CHF. COVID swab negative. Trop x 1 normal. * Echo showing EF 55-60%, diastolic dysfunction with apical AK and multiple HK areas. * Suspect fluid overload related to recent hospitalization. Related to anemia? Related to ischemia? * Started on IV Lasix with good UOP but minimal fluid balance. CXR repeated today showing worsening findings. * Consider PNA but still feel less likely * Continue IV Lasix. Fluid restriction. Metolazone once. Cards consult. NPO after MN (3) Abdominal pain: Code(s): R10.9 - Unspecified abdominal pain Status: Acute Assessment and Plan: Patient with abdominal pain with associated diarrhea that is longstanding * CT abdomen/pelvis showing colonic fluid and multiple incidental findings but no concerning finding to explain her symptoms. * No liver lesions or other findings to suggest carcinoid. * ESR>140. TIBC low but iron studies otherwise okay. * She does have city water and does filter water making parasites less likely. * GI consulted and appreciate their input * Colonoscopy performed 08/09 showing diverticulosis and polyps which were removed. Path of polyps reviewed. Bx taken. * CDiff negative. Crypto/Girdia negative. Follow up on other stools studies. * Consider Whipples. * Feels better after bowel prep. Continue scheduled Bentyl, metamucil and Questran (4) Chronic diarrhea: Code(s): K52.9 - Noninfective gastroenteritis and colitis, unspecified Status: Acute Assessment and Plan: Suspect related to her chronic abdominal pain. As above. (5) Lung infiltrate: Code(s): R91.8 - Other nonspecific abnormal finding of lung field Status: Acute Assessment and Plan: Patient with cough and shortness of breath. * Chest x-ray shows bibasilar predominance of reticulation. CT scan shows scattered bibasilar subsegmental atelectasis with bilateral pleural effusions. Suspect more CHF then PNA * Admitting provider was concerned about pneumonia so aztreonam and vancomycin started for possible HCAP * Leukopenic since admission. See below * Blood cultures NGTD * Feel pneumonia less likely so antibiotics have been held * Repeat CXR noted. * No fevers since admission. Continue to hold abx unless she worsens or starts with fevers (6) Pancytopenia: Code(s): D61.818 - Other pancytopenia Status: Acute Assessment and Plan: Patient presents for abdominal pain found to have pancytopenia * W
--- NOTE | 2021-08-10 15:51 | PM.IMPN ---
Progress Note: A&P Assessment and Plan (1) Hypoxia: Code(s): R09.02 - Hypoxemia Status: Acute Assessment and Plan: Patient presents with abdominal pain and noted to have hypoxia. ABG 7.39/51/88 on 2 L. ED note states hypoxia but without distress. Mildly elevated pCO2 is probably chronic and not acute given the normal pH May have undiagnosed sleep apnea with ApneaLink showing AHI 13 and RI 13. Despite being on 2L, she spent 49min with SpO2<88%. Chest x-ray is consistent with CHF. Cannot exclude pneumonia. Covid negative. PE less likely given other more obvious findings explain hypoxia. Also no tachycardia Hypoxia related to CHF exacerbation treated with lasix. As below Wean oxygen as tolerated. Increase O2 at night to 3L and repeat apnea link (2) Acute on chronic congestive heart failure: Code(s): I50.9 - Heart failure, unspecified Status: Acute Assessment and Plan: Patient presents with abdominal symptoms but noted to have evidence of Acute/Chronic Diastolic CHF exacerbation. BNP 16K. Chest x-ray consistent with CHF. COVID swab negative. Trop x 1 normal. Echo showing EF 55-60%, diastolic dysfunction with apical AK and multiple HK areas. Suspect fluid overload related to recent hospitalization. Related to anemia? Related to ischemia? Started on IV Lasix with good UOP but minimal fluid balance. CXR repeated today showing worsening findings. Consider PNA but still feel less likely Continue IV Lasix. Fluid restriction. Metolazone once. Cards consult. NPO after MN (3) Abdominal pain: Code(s): R10.9 - Unspecified abdominal pain Status: Acute Assessment and Plan: Patient with abdominal pain with associated diarrhea that is longstanding CT abdomen/pelvis showing colonic fluid and multiple incidental findings but no concerning finding to explain her symptoms. No liver lesions or other findings to suggest carcinoid. ESR>140. TIBC low but iron studies otherwise okay. She does have city water and does filter water making parasites less likely. GI consulted and appreciate their input Colonoscopy performed 08/09 showing diverticulosis and polyps which were removed. Path of polyps reviewed. Bx taken. CDiff negative. Crypto/Girdia negative. Follow up on other stools studies. Consider Whipples. Feels better after bowel prep. Continue scheduled Bentyl, metamucil and Questran (4) Chronic diarrhea: Code(s): K52.9 - Noninfective gastroenteritis and colitis, unspecified Status: Acute Assessment and Plan: Suspect related to her chronic abdominal pain. As above. (5) Lung infiltrate: Code(s): R91.8 - Other nonspecific abnormal finding of lung field Status: Acute Assessment and Plan: Patient with cough and shortness of breath. Chest x-ray shows bibasilar predominance of reticulation. CT scan shows scattered bibasilar subsegmental atelectasis with bilateral pleural effusions. Suspect more CHF then PNA Admitting provider was concerned about pneumonia so aztreonam and vancomycin started for possible HCAP Leukopenic since admission. See below Blood cultures NGTD Feel pneumonia less likely so antibiotics have been held Repeat CXR noted. No fevers since admission. Continue to hold abx unless she worsens or starts with fevers (6) Pancytopenia: Code(s): D61.818 - Other pancytopenia Status: Acute Assessment and Plan: Patient presents for abdominal pain found to have pancytopenia White count 2000 on admission; repeat 1700 with ANC 864 today Monocytosis (but normal absolute monocyte levels). Macrocytic anemia noted with hemoglobin 9.2 that has dropped to 7.7 Platelet count at 131K today with low immature plt fraction. Smear showing no schistocytes or blasts. Liver/Spleen appear normal. B12/Folate normal. Iron studies normal except for a low TIBC. Consider bone marrow infiltrative process such as
--- NOTE | 2021-08-10 18:01 | WPDONCPN ---
Progress Note: A/P - Additional Plan Pancytopenia. Labs reviewed that showed persistent leukopenia and anemia. Sedimentation rate is elevated. Reticulocyte count is low. Vitamin B12 level came back normal. Her pancytopenia could be secondary to inflammation like colitis with elevated C-reactive protein and sedimentation rate. Other possibilities include bone marrow disorders like myelodysplasia. There is also family history of multiple myeloma in the brother. Serum protein electrophoresis pending. I will proceed with bone marrow aspiration and biopsy. Non infectious colitis. Sigmoidoscopy showed colonic polyps but diverticulosis without perforation and abscess. Dr. Elizabeth input noted. - Time Spent With Patient Total time spent is greater than 50% in coordination of care (as documented) at patient's floor/unit and/or counseling patient: 15 - 25 minutes Subjective Interval history: Pancytopenia Non infectious colitis Review of Systems - Review of Systems Patient seems to be comfortable today. Her diarrhea is under control with the treatment. She has episodes of sudden abdominal cramping before bowel movement. Denies any melena hematochezia. I stool is now more formed. Denies any bleeding but does have some bruising. No fevers and chills. - Neurologic Reports hearing normal, Reports weakness, Denies behavioral changes, Denies vertigo, Denies syncope, Denies headache(s), Denies focal weakness, Denies sensory deficit Exam Vital signs: Temp Pulse Resp BP Pulse Ox 36.6 C 70 21 H 125/42 L 97 08/10/21 16:12 08/10/21 16:12 08/10/21 16:12 08/10/21 16:12 08/10/21 16:12 Narrative: Lungs are clear to auscultation bilaterally Cardiovascular regular rate rhythm no murmurs Abdomen soft slight tenderness in the lower abdominal area bowel sounds are hyperactive Extremities no edema PN: Objective Data - Labs CBC & Chem 7: 08/10/21 05:12 08/10/21 05:12 Labs: Laboratory Results - last 24 hr 08/10/21 08/10/21 08/10/21 05:12 05:12 05:12 WBC 1.7 L* RBC 2.40 L Hgb 7.7 L Hct 23.9 L MCV 99.6 MCH 32.1 MCHC 32.2 RDW 16.7 H Plt Count 131 L MPV 10.2 Immature Gran % (Auto) 0.6 H Neut % (Auto) 50.8 Lymph % (Auto) 19.5 [place] % (Auto) 24.9 H Eos % (Auto) 3.6 Baso % (Auto) 0.6 Lymph # (Auto) 0.33 L [place] # (Auto) 0.4 Eos # (Auto) 0.1 Baso # (Auto) 0.0 Abs Immat Gran (auto) 0.01 Absolute Neuts (auto) 0.9 L Absolute Nucleated RBC 0.0 Nucleated RBC % 0.0 Platelet Estimate Adequate % Immature Plt Fraction 3.3 Hypochromasia 1+ Anisocytosis 1+ Ovalocytes 2+ PT 17.8 H INR 1.5 APTT 32.9 Sodium 136 L Potassium 3.6 Chloride 100 Carbon Dioxide 35 H Anion Gap 1 L BUN 14 Creatinine 0.70 Estim Creat Clear Calc Not Reportable Estimated GFR > 60 Glucose 114 H Calcium 7.4 L Phosphorus 3.8 Magnesium 1.7 Albumin 2.5 L
[2021-08-10] MEDS: metOLazone 5 MG TABLET PO (20:36)
--- NOTE | 2021-08-10 21:26 | PCRCNOTE ---
Pt on Lasix- unable to perform apnea link.
[2021-08-11] VITALS (18 sets, daily range): BP systolic 134–150; BP diastolic 47–66; PULSE 62–78; RESP 16–20; TEMP 36.2–36.7; O2SAT 94–99
[2021-08-11 05:02] LABS: Basophils Percent Auto 0.6 % (0.2-1.2); Eosinophils Absolute Auto 0.1 K/mm3 (0-0.3); Eosinophils Percent Auto 3.6 % (0-4.4); Hematocrit 27.1 % (37.0-47.0); Hemoglobin 8.5 g/dL (12.0-15.0); Immature Granulocyte Absolute 0.01 K/mm3 (0.00-0.031); Immature Granulocyte Percent A 0.6 % (0-0.5); Lymphocytes Absolute Auto 0.46 K/mm3 (0.9-3.2); Lymphocytes Percent Auto 27.5 % (18.3-44.2); Mean Corpuscular HGB Conc 31.4 g/dl (32-36); Mean Corpuscular Hemoglobin 32.7 pg (26-34); Mean Corpuscular Volume 104.2 fl (80-100); Mean Platelet Volume 10.3 fl (7.4-10.4); Monocytes Absolute Auto 0.3 K/mm3 (0.1-0.6); Monocytes Percent Auto 16.8 % (2.6-8.5); Neutrophils Absolute Auto 0.9 K/mm3 (1.3-6.7); Neutrophils Percent Auto 50.9 % (45.5-73.1); Platelet Count Result 163 k/mm3 (150-375); Red Cell Distribution Width 16.6 % (11.5-14.5)
[2021-08-11 05:14] LABS: White Blood Count 1.7 K/mm3 (4.5-10.0)
[2021-08-11 05:16] LABS: Alanine Aminotransferase 10 U/L (4-35); Albumin Level 2.8 g/dL (3.5-5.1); Alkaline Phosphatase 55 U/L (38-126); Aspartate Amino Transferase 27 U/L (14-36); Bilirubin,Total 0.5 mg/dL (0.2-1.3); Blood Urea Nitrogen 14 mg/dL (7-17); Calcium 7.8 mg/dL (8.4-10.2); Carbon Dioxide > 40 mmol/L (22-30); Chloride 95 mmol/L (98-107); Estimated Glomerular Filt Rate > 60; Glucose 109 mg/dL (65-110); Magnesium 1.5 mg/dL (1.6-2.3); Potassium 3.3 mmol/L (3.4-5.0); Sodium 134 mmol/L (137-145)
[2021-08-11 05:37] LABS: Albumin 2.4 g/dL (3.8-4.8); Alpha 1 Globulin 0.4 g/dL (0.2-0.3); Alpha 2 Globulin 0.7 g/dL (0.5-0.9); Beta 1 Globulin 0.3 g/dL (0.4-0.6); Gamma Globulin 1.6 g/dL (0.8-1.7); Protein, Total 6.1 g/dL (6.1-8.1)
[2021-08-11 06:00] LABS: Rheumatoid Factor < 12.0 IU/ML (<12)
[2021-08-11] MEDS: FUROSEMIDE INJ 40 MG/4 ML VIAL IV PUSH ×2 (08:20→16:59)
[2021-08-11] MEDS: DICYCLOMINE HCL 10 MG CAPSULE BY MOUTH ×3 (08:20→20:09)
[2021-08-11] MEDS: NEBIVOLOL HCL 5 MG TABLET 10 MG PO (08:20)
--- NOTE | 2021-08-11 10:16 | PCNFU ---
Nutrition Follow-Up Complete: Pt currently NPO for bone marrow biopsy. Diet was heart healthy and intake had improved, reported good intake yesterday of meals and Ensure compact. Also on banaitrol supplement for diarrhea and tolerating well. Suboptimal po intake r/t altered GI function AEB pt report of minimal po intake, chronic diarrhea Goal:Improve po intake to 50% or greater Pt current nutrition is NPO for test but had been progressing towards goal. Nutrition recommendation: Continue with current plan of care. Last recorded weight is 74.4 kg - pt is on lasix therapy and 1500ml fluid restriction Bowel Motility: 08/09 last BM Labs Reviewed: NA; 135, K:3.3 Meds Noted: lasix Skin: WNL Additional Notes: To resume diet post procedure monitor po intake, GI tolerance, labs and wt. Follow up in 5 days.
[2021-08-11] MEDS: POTASSIUM CHLORIDE 20 MEQ PACKET (FOR LIQUID) 40 MEQ PO (11:20)
[2021-08-11] MEDS: PSYLLIUM POWDER PACKET 1 PACKET PO ×2 (11:20→20:09)
[2021-08-11] MEDS: MAGNESIUM SULF 2 GM/WATER 50ML 2 GM/50 ML BAG IVPB (11:20)
[2021-08-11] MEDS: CHOLESTYRAMINE (W/ SUGAR) 4 GM POWD.PACK PO (11:21)
[2021-08-11 11:48] LABS: Haptoglobin 171 mg/dL (43-212)
--- NOTE | 2021-08-11 12:12 | PM.CNCAR ---
Assessment and Plan Assessment and plan (1) Essential hypertension: Code(s): I10 - Essential (primary) hypertension Status: Acute Assessment and Plan: Above goal (2) Abnormal echocardiogram: Code(s): R93.1 - Abnormal findings on diagnostic imaging of heart and coronary circulation Status: Acute Assessment and Plan: Wall motion abnormalities are present. Cannot exclude underlying ischemia. Other possibilities are a stress-induced cardiomyopathy. Will request records from [facility] including most recent echocardiogram and ischemic evaluation. She is awaiting a bone marrow biopsy so no aspirin will be initiated but I am going to start her on nitroglycerin paste for preload and afterload reduction. If ischemic, obviously nitroglycerin will also help. She will need eventual ischemic evaluation. In the meantime continue furosemide 40 mg IV q.12 hours. Will replace potassium 40 mEq p.o. x1. Continue lisinopril and nebivolol. (3) Chronic diarrhea: Code(s): K52.9 - Noninfective gastroenteritis and colitis, unspecified Status: Acute Assessment and Plan: Workup in progress (4) Leukopenia: Code(s): D72.819 - Decreased white blood cell count, unspecified Status: Acute Assessment and Plan: Awaiting bone marrow biopsy. After biopsy, if okay with other services, start low-dose aspirin 81 mg p.o. daily (5) Acute on chronic congestive heart failure: Code(s): I50.9 - Heart failure, unspecified Status: Acute Assessment and Plan: Possibly ischemic versus stress-induced in etiology. As detailed above. Continue beta-gagandeep, MILADY inhibitor, nitrate, diuresis. Intake and outputs and daily weights and follow daily basic metabolic panel and replace electrolytes as needed History of Present Illness History of Present Illness Consult date/time: 08/11/21 12:12 Requesting physician: Amol Shahid MD Consult reason: congestive heart failure Reason For Visit: Acute hypoxic and hypercarbic respiratory failure Narrative: Reason consultation: CHF, wall motion abnormality seen on echo Date of service 08/11/2021 Requesting provider: Dr. Shahid History: Patient is an 80-year-old female who sees Dr. Perez in [facility]. She does have a pacemaker but no other cardiac history that she is aware of. She came to this hospital because of 6 months of diarrhea and abdominal pain. Her symptoms became so severe that she needed further workup. Patient states she was having severe abdominal pain after bowel movements as well as severe abdominal pain when walking and then she would have severe diarrhea. She has developed some shortness of breath over the past couple of days. Shortness breath is occurring at rest. She does have chronic lower extremity swelling which is worse than usual. She also had abdominal distention and bloating. She was admitted for further workup regarding abdominal pain, CHF and has undergone some diuresis. Echocardiogram was performed showing preserved ejection fraction but with multiple wall motion abnormalities. Cardiology consultation therefore requested. She has had some dizziness upon standing. She denies any syncope. No paroxysmal nocturnal dyspnea, orthopnea or palpitations. Review of Systems Review of Systems: All systems reviewed & are unremarkable except as noted in HPI and below Constitutional: Constitutional: Reports weakness Eyes: Eyes: Denies blurry vision ENT: Reports Normal hearing present Cardiovascular: Cardiovascular: Denies chest pain, Reports pedal edema and Reports leg edema Respiratory: Respiratory: Reports dyspnea Gastrointestinal: Gastrointestinal: Reports abdominal pain, Reports bloating and Reports diarrhea Genitourinary: Genitourinary: Denies hematuria Musculoskeletal: Musculoskeletal: Denies back pain and Denies neck pain Integumentary/Breasts: Skin/Breast: Denies dry skin Ne
--- NOTE | 2021-08-11 13:48 | PCCCNOTE ---
On 08/11/21, the student, [Cindi Mays], provided care and completed [facility] documentation on this patient. I have reviewed the student's documentation and agree with the findings.
--- NOTE | 2021-08-11 15:35 | P.PNIM_ITS ---
Progress Note: A&P Assessment and Plan (1) Hypoxia: Code(s): R09.02 - Hypoxemia Status: Acute Assessment and Plan: Patient presents with abdominal pain and noted to have hypoxia. * ABG 7.39/51/88 on 2 L. * ED note states hypoxia but without distress. * Mildly elevated pCO2 is probably chronic and not acute given the normal pH * May have undiagnosed sleep apnea with ApneaLink showing AHI 13 and RI 13. * ApneaLink also showed that despite being on 2L, she spent 49min with SpO2<88% * Chest x-ray is consistent with CHF. Cannot exclude pneumonia. COVID swab negative. * PE less likely given other more obvious findings explain hypoxia. Also no tachycardia * Hypoxia felt related to CHF exacerbation treated with lasix. As below * Wean oxygen as tolerated while awake. Increased O2 at night to 3L; repeat apnea link pending (2) Acute on chronic congestive heart failure: Code(s): I50.9 - Heart failure, unspecified Status: Acute Assessment and Plan: Patient presents with abdominal symptoms but noted to have evidence of Acute/Chronic Diastolic CHF exacerbation. * BNP 16K. Chest x-ray consistent with CHF. COVID swab negative. Trop x 1 normal. * Echo showing EF 55-60%, diastolic dysfunction with apical AK and multiple HK areas. * Suspect fluid overload related to recent hospitalization. Related to anemia? Related to ischemia? * Started on IV Lasix with good UOP and -2.2L fluid balance. * Consider PNA but still feel less likely * Continue IV Lasix. Fluid restriction. Cards consulted and appreciate their input * Old records reviewed (3) Abdominal pain: Code(s): R10.9 - Unspecified abdominal pain Status: Acute Assessment and Plan: Patient with abdominal pain with associated diarrhea that is longstanding * CT abdomen/pelvis showing colonic fluid and multiple incidental findings but no concerning finding to explain her symptoms. * No liver lesions or other findings to suggest carcinoid. * ESR>140. TIBC low but iron studies otherwise okay. * She does have city water and does filter water making parasites less likely. * GI consulted and appreciate their input * Colonoscopy 08/09 showing diverticulosis and polyps which were removed. Path of polyps reviewed. Bx taken. * CDiff negative. Crypto/Girdia negative. Follow up on other stools studies. * Consider Whipples. * Feels better after bowel prep and symptoms improved overall; eating much better. * Continue scheduled Bentyl, metamucil and Questran (4) Chronic diarrhea: Code(s): K52.9 - Noninfective gastroenteritis and colitis, unspecified Status: Acute Assessment and Plan: Suspect related to her chronic abdominal pain. As above. (5) Lung infiltrate: Code(s): R91.8 - Other nonspecific abnormal finding of lung field Status: Acute Assessment and Plan: Patient with cough and shortness of breath. * Chest x-ray shows bibasilar predominance of reticulation. CT scan shows scattered bibasilar subsegmental atelectasis with bilateral pleural effusions. Suspect more CHF then PNA * Admitting provider was concerned about pneumonia so aztreonam and vancomycin started for possible HCAP * Leukopenic since admission. See below * Blood cultures NGTD * Feel pneumonia less likely so antibiotics have been held * Repeat CXR noted. * No fevers since admission. Continue to hold abx unless she worsens or starts with fevers (6) Pancytopenia: Code(s): D61.818 - Other pancytopenia Status: Acute Assessment and Plan:
--- NOTE | 2021-08-11 15:35 | PM.IMPN ---
Progress Note: A&P Assessment and Plan (1) Hypoxia: Code(s): R09.02 - Hypoxemia Status: Acute Assessment and Plan: Patient presents with abdominal pain and noted to have hypoxia. ABG 7.39/51/88 on 2 L. ED note states hypoxia but without distress. Mildly elevated pCO2 is probably chronic and not acute given the normal pH May have undiagnosed sleep apnea with ApneaLink showing AHI 13 and RI 13. ApneaLink also showed that despite being on 2L, she spent 49min with SpO2<88% Chest x-ray is consistent with CHF. Cannot exclude pneumonia. COVID swab negative. PE less likely given other more obvious findings explain hypoxia. Also no tachycardia Hypoxia felt related to CHF exacerbation treated with lasix. As below Wean oxygen as tolerated while awake. Increased O2 at night to 3L; repeat apnea link pending (2) Acute on chronic congestive heart failure: Code(s): I50.9 - Heart failure, unspecified Status: Acute Assessment and Plan: Patient presents with abdominal symptoms but noted to have evidence of Acute/Chronic Diastolic CHF exacerbation. BNP 16K. Chest x-ray consistent with CHF. COVID swab negative. Trop x 1 normal. Echo showing EF 55-60%, diastolic dysfunction with apical AK and multiple HK areas. Suspect fluid overload related to recent hospitalization. Related to anemia? Related to ischemia? Started on IV Lasix with good UOP and -2.2L fluid balance. Consider PNA but still feel less likely Continue IV Lasix. Fluid restriction. Cards consulted and appreciate their input Old records reviewed (3) Abdominal pain: Code(s): R10.9 - Unspecified abdominal pain Status: Acute Assessment and Plan: Patient with abdominal pain with associated diarrhea that is longstanding CT abdomen/pelvis showing colonic fluid and multiple incidental findings but no concerning finding to explain her symptoms. No liver lesions or other findings to suggest carcinoid. ESR>140. TIBC low but iron studies otherwise okay. She does have city water and does filter water making parasites less likely. GI consulted and appreciate their input Colonoscopy 08/09 showing diverticulosis and polyps which were removed. Path of polyps reviewed. Bx taken. CDiff negative. Crypto/Girdia negative. Follow up on other stools studies. Consider Whipples. Feels better after bowel prep and symptoms improved overall; eating much better. Continue scheduled Bentyl, metamucil and Questran (4) Chronic diarrhea: Code(s): K52.9 - Noninfective gastroenteritis and colitis, unspecified Status: Acute Assessment and Plan: Suspect related to her chronic abdominal pain. As above. (5) Lung infiltrate: Code(s): R91.8 - Other nonspecific abnormal finding of lung field Status: Acute Assessment and Plan: Patient with cough and shortness of breath. Chest x-ray shows bibasilar predominance of reticulation. CT scan shows scattered bibasilar subsegmental atelectasis with bilateral pleural effusions. Suspect more CHF then PNA Admitting provider was concerned about pneumonia so aztreonam and vancomycin started for possible HCAP Leukopenic since admission. See below Blood cultures NGTD Feel pneumonia less likely so antibiotics have been held Repeat CXR noted. No fevers since admission. Continue to hold abx unless she worsens or starts with fevers (6) Pancytopenia: Code(s): D61.818 - Other pancytopenia Status: Acute Assessment and Plan: Patient presents for abdominal pain found to have pancytopenia White count 2000 on admission; repeat 1700 with ANC 867 today Monocytosis (but normal absolute monocyte levels). Macrocytic anemia noted with hemoglobin 9.2 that dropped to 7.7; better today at 8.2 Platelet count up and down but with low immature plt fraction. Smear showing no schistocytes or blasts. Liver/Spleen appear normal. B12/Folate normal. Iron st
--- NOTE | 2021-08-11 15:57 | WPDGIPROGNO ---
Progress Note: A&P Assessment and Plan (1) Chronic diarrhea: Code(s): K52.9 - Noninfective gastroenteritis and colitis, unspecified Status: Acute Assessment and Plan: colonoscopy only small polyps removed, diverticulosis without any inflammation and normal colon mucosa (also had normal random colon bx without colitis) continue with questran daily, she is feeling better. stool sample negative will follow [place], she can follow up in office (2) Pancytopenia: Code(s): D61.818 - Other pancytopenia Status: Acute Assessment and Plan: work up in progress by hematology (3) Acute on chronic congestive heart failure: Code(s): I50.9 - Heart failure, unspecified Status: Acute Assessment and Plan: on lasix (4) Abnormal echocardiogram: Code(s): R93.1 - Abnormal findings on diagnostic imaging of heart and coronary circulation Status: Acute Assessment and Plan: possible ischemia, cardiology on board Subjective Date/time seen: 08/11/21 15:57 Interval history: less bloated and abdominal pain improving, today had one small mushy bowel movement - GI issues better and eating more. Still feels tired. Review of Systems Review of Systems: All systems reviewed & are unremarkable except as noted in HPI and below Exam Const: General: comfortable and no acute distress HENMT: General nose exam: Normal nares present Eyes: General: appearance normal, both eyes and all related structures Neck: Neck: no JVD Resp: Auscultation: rales Cardio: Rate: regular rate Rhythm: regular rhythm GI: Inspection: non-distended GI Palp: Yes Soft to palpation and No Guarding due to palpation present (GI) Auscultation: normal bowel sounds Skin: General skin exam: normal color Neuro: Speech: normal speech Motor exam (neuro): Normal motor muscle tone present throughout Extrem: General: normal to inspection Psych: Mental Status: mental status grossly normal Objective Data Vital Signs Vital Signs: Vital Signs - 24 hr 08/10/21 16:00 08/10/21 16:12 08/10/21 18:00 Temperature 97.9 F Pulse Rate 63 70 83 Respiratory Rate 18 21 H Blood Pressure 125/42 L Pulse Oximetry 98 97 08/10/21 20:00 08/10/21 22:00 08/10/21 23:33 Temperature 98.9 F Pulse Rate 75 75 76 Respiratory Rate 20 20 Blood Pressure 150/61 H Pulse Oximetry 95 95 08/11/21 00:00 08/11/21 02:00 08/11/21 04:00 Temperature 98.1 F 97.6 F Pulse Rate 72 66 65 Respiratory Rate 20 20 Blood Pressure 146/51 H 144/55 H Pulse Oximetry 99 98 08/11/21 05:05 08/11/21 06:00 08/11/21 08:00 Temperature 97.3 F L Pulse Rate 66 78 Respiratory Rate 20 Blood Pressure 150/61 H Pulse Oximetry 96 96 08/11/21 08:20 08/11/21 10:00 08/11/21 12:00 Temperature 97.1 F L Pulse Rate 78 69 70 Respiratory Rate 20 Blood Pressure 147/47 H Pulse Oximetry 96 08/11/21 14:00 Temperature Pulse Rate 70 Respiratory Rate Blood Pressure Pulse Oximetry Intake/Output Intake/Output: Intake & Output 08/08/21 08/09/21 08/10/21 08/11/21 23:59 23:59 23:59 23:59 Intake Total 710 2830 1200 300 Output Total 3100 2650 1400 1100 Balance -2390 180 -200 -800 Meds/Results Medications: Active Medications Generic Name Dose Route Start Last Admin Trade Name Freq PRN Reason Stop Dose Admin Cholestyramine Resin 4 gm 08/10/21 11:00 08/11/21 11:21 Cholestyramine (W/ Sugar) 4 Gm Powd.Pack PO 4 gm QAM@1100 WILLIAM Administration Dicyclomine HCl 10 mg 08/08/21 09:00 08/11/21 15:51 Dicyclomine Hcl 10 Mg Capsule BY MOUTH 08/13/21 23:00 Not Given QID WILLIAM Furosemide 40 mg 08/09/21 17:00 08/11/21 08:20 Furosemide Inj 40 Mg/4 Ml Vial IV PUSH 40 mg BID WILLIAM Administration Nebivolol 10 mg 08/08/21 09:00 08/11/21 08:20 Nebivolol Hcl 5 Mg Tablet PO 10 mg DAILY WILLIAM Administration Neomycin/Polymyxin/Bacitracin 1 applic 08/10/21 18:06 Neomycin/Jonathan
[2021-08-11] MEDS: POTASSIUM CHLORIDE 20 MEQ TABLET 40 MEQ PO (16:58)
[2021-08-11] MEDS: NITROGLYCERIN OINTMENT 1 INCH DOSE TRANSDERM ×2 (16:59→22:41)
[2021-08-12] VITALS (18 sets, daily range): BP systolic 130–147; BP diastolic 42–52; PULSE 61–98; RESP 16–34; TEMP 36.1–36.7; O2SAT 86–99
--- NOTE | 2021-08-12 05:27 | PC.NURSE ---
Pt had 469 on bladder scan, Dr Bates notified, order for straight cath prn. Offered pt to try bedside commode before straight cath since she had been using the bedpan and urinating only small amounts. Pt wanted to wait a while to build some up and to get the urge. Explained to pt that she already had some urine retained in her bladder, but agreed to come back.
[2021-08-12 06:14] LABS: Eosinophils Percent Auto 2.8 % (0-4.4); Hematocrit 26.7 % (37.0-47.0); Hemoglobin 8.5 g/dL (12.0-15.0); Immature Granulocyte Absolute 0.01 K/mm3 (0.00-0.031); Immature Granulocyte Percent A 0.7 % (0-0.5); Immature Platelet Fraction Pct 3.1 % (0.9-11.2); Mean Corpuscular HGB Conc 31.8 g/dl (32-36); Mean Corpuscular Hemoglobin 32.4 pg (26-34); Mean Corpuscular Volume 101.9 fl (80-100); Mean Platelet Volume 10.3 fl (7.4-10.4); Monocytes Absolute Auto 0.3 K/mm3 (0.1-0.6); Monocytes Percent Auto 18.9 % (2.6-8.5); Neutrophils Absolute Auto 0.7 K/mm3 (1.3-6.7); Neutrophils Percent Auto 49.6 % (45.5-73.1); Platelet Count Result 154 k/mm3 (150-375); Red Blood Count 2.62 M/mm3 (4.2-5.4); Red Cell Distribution Width 16.5 % (11.5-14.5)
[2021-08-12] MEDS: NITROGLYCERIN OINTMENT 1 INCH DOSE TRANSDERM ×4 (06:18→23:32)
[2021-08-12 06:24] LABS: Albumin Level 2.8 g/dL (3.5-5.1); Anion Gap 3 mmol/L (8-16); Blood Urea Nitrogen 17 mg/dL (7-17); Carbon Dioxide 38 mmol/L (22-30); Chloride 96 mmol/L (98-107); Estimated Glomerular Filt Rate > 60; Glucose 98 mg/dL (65-110); Magnesium 1.8 mg/dL (1.6-2.3); Phosphorus 3.5 mg/dL (2.5-4.5); Potassium 3.8 mmol/L (3.4-5.0); Sodium 137 mmol/L (137-145)
[2021-08-12 07:33] LABS: Creatinine, Random Urine 50 mg/dL (20-275); Total Protein/Creatinine Ratio 560 mg/g creat (21-161)
[2021-08-12] MEDS: FUROSEMIDE INJ 40 MG/4 ML VIAL IV PUSH ×2 (08:24→17:14)
[2021-08-12] MEDS: NEBIVOLOL HCL 5 MG TABLET 10 MG PO (08:25)
[2021-08-12] MEDS: PSYLLIUM POWDER PACKET 1 PACKET PO ×2 (08:25→20:04)
[2021-08-12] MEDS: DICYCLOMINE HCL 10 MG CAPSULE BY MOUTH ×4 (08:25→20:05)
[2021-08-12 09:44] LABS: White Blood Count 1.4 K/mm3 (4.5-10.0)
[2021-08-12 10:52] LABS: CALR Exon 9 Mutation Not Detected (Not Detected); CSF3R Exon 14/17 Mutation Not Detected (Not Detected); Clinical Indication Not Provided; JAK2 Exon 12 Mutation Not Detected (Not Detected); JAK2 V617F Mutation Not Detected (Not Detected); MPL Exon 10 Mutation Not Detected (Not Detected); Specimen Source Not Provided
[2021-08-12] MEDS: CHOLESTYRAMINE (W/ SUGAR) 4 GM POWD.PACK PO (11:11)
--- NOTE | 2021-08-12 11:24 | PM.PNCARD ---
Progress Note: A&P Additional Plan 80-year-old lady presenting here with complaints of abdominal discomfort diarrhea found to be neutropenic and anemic. She has a chronically implanted cardiac pacemaker device which appears to be functioning normally and does not report any additional cardiac history. She does have some echocardiographic wall motion abnormalities as noted by my partner E on his consult yesterday however she is not reporting any symptomatic ischemia. Given her age and lack of ischemic symptoms and DNR status I personally do not think that I would initiate an ischemia workup when this has nothing to do with why she is hospitalized from what I can see. No specific cardiac recommendations today otherwise Armen Neumann MD [facility] Subjective Date/time seen: Date of service: 08/12/21 11:24 Interval history: Follow-up visit in this 80-year-old woman with: History of chronically implanted electronic dual-chamber pacemaker and followed by cardiologists up in [place]. Patient was admitted to this hospital with abdominal pain, diarrhea which has been going on for quite a while also found to be anemic and neutropenic. Does not describe any specific cardiac complaints. Telemetry demonstrates dual-chamber electronic pacing Exam Const: General: comfortable and no acute distress HENMT: Mouth: Yes moist mucous membranes Eyes: Sclera: sclerae normal Neck: Neck: supple and no JVD Resp: Effort & Inspection: normal respiratory effort Auscultation: clear to auscultation bilaterally Cardio: Rate: regular rate Rhythm: regular rhythm Other: Soft systolic murmur at the left sternal border GI: Inspection: distended GI Palp: Yes Soft to palpation Skin: General skin exam: normal color Neuro: Cognition (Neuro): normal cognition Objective Data Vital Signs Vital Signs: Vital Signs - 24 hr 08/11/21 12:00 08/11/21 14:00 08/11/21 16:00 Temperature 36.2 C L 36.6 C Pulse Rate 70 70 62 Respiratory Rate 20 20 Blood Pressure 147/47 H 137/48 L Pulse Oximetry 96 94 08/11/21 18:00 08/11/21 19:40 08/11/21 20:00 Temperature 36.2 C L Pulse Rate 68 73 69 Respiratory Rate 16 Blood Pressure 134/48 L Pulse Oximetry 95 95 08/11/21 20:26 08/11/21 21:56 08/11/21 22:45 Temperature Pulse Rate 65 Respiratory Rate Blood Pressure Pulse Oximetry 95 94 08/11/21 23:52 08/12/21 00:00 08/12/21 02:00 Temperature 36.3 C L Pulse Rate 68 64 66 Respiratory Rate 16 Blood Pressure 140/66 Pulse Oximetry 97 08/12/21 04:00 08/12/21 06:00 08/12/21 08:00 Temperature 36.1 C L 36.7 C Pulse Rate 78 98 74 Respiratory Rate 16 34 H Blood Pressure 147/47 H 142/52 H Pulse Oximetry 98 97 08/12/21 08:20 08/12/21 08:22 08/12/21 08:25 Temperature Pulse Rate 76 Respiratory Rate Blood Pressure Pulse Oximetry 96 95 08/12/21 10:00 Temperature Pulse Rate 63 Respiratory Rate Blood Pressure Pulse Oximetry Intake/Output Intake/Output: Intake & Output 08/09/21 08/10/21 08/11/21 08/12/21 23:59 23:59 23:59 23:59 Intake Total 2830 1200 1340 730 Output Total 2650 1400 2650 550 Balance 180 -200 -1310 180 Meds/Results Medications: Active Medications Generic Name Dose Route Start Last Admin Trade Name Freq PRN Reason Stop Dose Admin Cholestyramine Resin 4 gm 08/10/21 11:00 08/12/21 11:11 Cholestyramine (W/ Sugar) 4 Gm Powd.Pack PO 4 gm QAM@1100 WILLIAM Administration Dicyclomine HCl 10 mg 08/08/21 09:00 08/12/21 08:25 Dicyclomine Hcl 10 Mg Capsule BY MOUTH 08/13/21 23:00 10 mg QID WILLIAM Administration Furosemide 40 mg 08/09/21 17:00 08/12/21 08:24 Furosemide Inj 40 Mg/4 Ml Vial IV PUSH 40 mg BID WILLIAM Administration Nebivolol 10 mg 08/08/21 09:00 08/12/21 08:25 Nebivolol Hcl 5 Mg Tablet PO 10 mg DAILY WILLIAM Administration Neomycin/Polymyxin/Bacitracin 1 applic 08/10/21 18:06 Neomycin/Polymyxin/Bacitracin Ointment 15 G
--- NOTE | 2021-08-12 12:03 | P.PNIM_ITS ---
Progress Note: A&P Assessment and Plan (1) Hypoxia: Code(s): R09.02 - Hypoxemia Status: Acute Assessment and Plan: Patient presents with abdominal pain and noted to have hypoxia. * ABG 7.39/51/88 on 2 L. * ED note states hypoxia but without distress. * Mildly elevated pCO2 is probably chronic and not acute given the normal pH * May have undiagnosed sleep apnea with ApneaLink showing AHI 13 and RI 13. * Despite being on 2L, she spent 49min with SpO2<88%. * Chest x-ray is consistent with CHF. Cannot exclude pneumonia. Covid negative. * PE less likely given other more obvious findings explain hypoxia. Also no tachycardia * Hypoxia related to CHF exacerbation treated with lasix. * Wean oxygen as tolerated. Increase O2 at night to 3L and repeat apnea link * Improved (2) Acute on chronic congestive heart failure: Code(s): I50.9 - Heart failure, unspecified Status: Acute Assessment and Plan: Patient presents with abdominal symptoms but noted to have evidence of Acute/Chronic Diastolic CHF exacerbation. * BNP 16K. Chest x-ray consistent with CHF. COVID swab negative. Trop x 1 normal. * Echo showing EF 55-60%, diastolic dysfunction with apical AK and multiple HK areas. * Suspect fluid overload related to recent hospitalization. Related to anemia? Related to ischemia? Follow-up with cardiology * Status post IV Lasix. Fluid restriction. Metolazone once. Cards consult. NPO after MN (3) Abdominal pain: Code(s): R10.9 - Unspecified abdominal pain Status: Acute Assessment and Plan: Patient with abdominal pain with associated diarrhea that is longstanding * CT abdomen/pelvis showing colonic fluid and multiple incidental findings but no concerning finding to explain her symptoms. * No liver lesions or other findings to suggest carcinoid. * ESR>140. TIBC low but iron studies otherwise okay. * She does have city water and does filter water making parasites less likely. * GI consulted and appreciate their input * Colonoscopy performed 08/09 showing diverticulosis and polyps which were removed. Path of polyps reviewed. Bx taken. * CDiff negative. Crypto/Girdia negative. Follow up on other stools studies. * GI recommendation appreciated * Feels better after bowel prep. Continue scheduled Bentyl, metamucil and Questran (4) Chronic diarrhea: Code(s): K52.9 - Noninfective gastroenteritis and colitis, unspecified Status: Acute Assessment and Plan: Suspect related to her chronic abdominal pain. As above. (5) Lung infiltrate: Code(s): R91.8 - Other nonspecific abnormal finding of lung field Status: Acute Assessment and Plan: Patient with cough and shortness of breath. * Chest x-ray shows bibasilar predominance of reticulation. CT scan shows scattered bibasilar subsegmental atelectasis with bilateral pleural effusions. Suspect more CHF then PNA * Admitting provider was concerned about pneumonia so aztreonam and vancomycin started for possible HCAP * Leukopenic since admission. See below * Blood cultures NGTD * Feel pneumonia less likely so antibiotics have been held * Repeat CXR noted. * No fevers since admission. Continue to hold abx unless she worsens or starts with fevers (6) Pancytopenia: Code(s): D61.818 - Other pancytopenia Status: Acute Assessment and Plan: Patient presents for abdominal pain found to have pancytopenia * White count 2000 on admission; repeat 1700 with ANC 864 today * Monocytosis (but normal absolute monocyte levels).
--- NOTE | 2021-08-12 12:03 | PM.IMPN ---
Progress Note: A&P Assessment and Plan (1) Hypoxia: Code(s): R09.02 - Hypoxemia Status: Acute Assessment and Plan: Patient presents with abdominal pain and noted to have hypoxia. ABG 7.39/51/88 on 2 L. ED note states hypoxia but without distress. Mildly elevated pCO2 is probably chronic and not acute given the normal pH May have undiagnosed sleep apnea with ApneaLink showing AHI 13 and RI 13. Despite being on 2L, she spent 49min with SpO2<88%. Chest x-ray is consistent with CHF. Cannot exclude pneumonia. Covid negative. PE less likely given other more obvious findings explain hypoxia. Also no tachycardia Hypoxia related to CHF exacerbation treated with lasix. Wean oxygen as tolerated. Increase O2 at night to 3L and repeat apnea link Improved (2) Acute on chronic congestive heart failure: Code(s): I50.9 - Heart failure, unspecified Status: Acute Assessment and Plan: Patient presents with abdominal symptoms but noted to have evidence of Acute/Chronic Diastolic CHF exacerbation. BNP 16K. Chest x-ray consistent with CHF. COVID swab negative. Trop x 1 normal. Echo showing EF 55-60%, diastolic dysfunction with apical AK and multiple HK areas. Suspect fluid overload related to recent hospitalization. Related to anemia? Related to ischemia? Follow-up with cardiology Status post IV Lasix. Fluid restriction. Metolazone once. Cards consult. NPO after MN (3) Abdominal pain: Code(s): R10.9 - Unspecified abdominal pain Status: Acute Assessment and Plan: Patient with abdominal pain with associated diarrhea that is longstanding CT abdomen/pelvis showing colonic fluid and multiple incidental findings but no concerning finding to explain her symptoms. No liver lesions or other findings to suggest carcinoid. ESR>140. TIBC low but iron studies otherwise okay. She does have city water and does filter water making parasites less likely. GI consulted and appreciate their input Colonoscopy performed 08/09 showing diverticulosis and polyps which were removed. Path of polyps reviewed. Bx taken. CDiff negative. Crypto/Girdia negative. Follow up on other stools studies. GI recommendation appreciated Feels better after bowel prep. Continue scheduled Bentyl, metamucil and Questran (4) Chronic diarrhea: Code(s): K52.9 - Noninfective gastroenteritis and colitis, unspecified Status: Acute Assessment and Plan: Suspect related to her chronic abdominal pain. As above. (5) Lung infiltrate: Code(s): R91.8 - Other nonspecific abnormal finding of lung field Status: Acute Assessment and Plan: Patient with cough and shortness of breath. Chest x-ray shows bibasilar predominance of reticulation. CT scan shows scattered bibasilar subsegmental atelectasis with bilateral pleural effusions. Suspect more CHF then PNA Admitting provider was concerned about pneumonia so aztreonam and vancomycin started for possible HCAP Leukopenic since admission. See below Blood cultures NGTD Feel pneumonia less likely so antibiotics have been held Repeat CXR noted. No fevers since admission. Continue to hold abx unless she worsens or starts with fevers (6) Pancytopenia: Code(s): D61.818 - Other pancytopenia Status: Acute Assessment and Plan: Patient presents for abdominal pain found to have pancytopenia White count 2000 on admission; repeat 1700 with ANC 864 today Monocytosis (but normal absolute monocyte levels). Macrocytic anemia noted with hemoglobin 9.2 that has dropped to 7.7 Platelet count at 131K today with low immature plt fraction. Smear showing no schistocytes or blasts. Liver/Spleen appear normal. B12/Folate normal. Iron studies normal except for a low TIBC. Consider bone marrow infiltrative process such as monocytosis leukemia; consider chronic autoimmune (ESR>140) Heme Onc consulted and appreciate their input
[2021-08-12 12:36] LABS: Gliadin AB, IgG <1.0 U/mL (<15.0); Reticulin IgA Negative (Negative); TTG IGA AB <1.0 U/mL (<15.0)
[2021-08-13] VITALS (10 sets, daily range): BP systolic 123–143; BP diastolic 41–58; PULSE 62–79; RESP 18–32; TEMP 36.1–36.6; O2SAT 94–100
[2021-08-13] MEDS: NITROGLYCERIN OINTMENT 1 INCH DOSE TRANSDERM ×3 (05:28→18:03)
[2021-08-13 05:53] LABS: Basophils Percent Auto 0.6 % (0.2-1.2); Eosinophils Absolute Auto 0.1 K/mm3 (0-0.3); Eosinophils Percent Auto 3.4 % (0-4.4); Hematocrit 27.7 % (37.0-47.0); Hemoglobin 8.8 g/dL (12.0-15.0); Immature Granulocyte Absolute 0.02 K/mm3 (0.00-0.031); Immature Granulocyte Percent A 1.1 % (0-0.5); Lymphocytes Absolute Auto 0.47 K/mm3 (0.9-3.2); Mean Corpuscular HGB Conc 31.8 g/dl (32-36); Mean Corpuscular Hemoglobin 32.4 pg (26-34); Mean Corpuscular Volume 101.8 fl (80-100); Mean Platelet Volume 10.4 fl (7.4-10.4); Monocytes Absolute Auto 0.3 K/mm3 (0.1-0.6); Monocytes Percent Auto 16.7 % (2.6-8.5); Neutrophils Absolute Auto 0.9 K/mm3 (1.3-6.7); Neutrophils Percent Auto 51.2 % (45.5-73.1); Red Blood Count 2.72 M/mm3 (4.2-5.4); Red Cell Distribution Width 16.8 % (11.5-14.5)
[2021-08-13 06:34] LABS: White Blood Count 1.7 K/mm3 (4.5-10.0)
[2021-08-13 06:47] LABS: Immature Platelet Fraction Pct 3.1 % (0.9-11.2); Platelet Count Result 124 k/mm3 (150-375)
[2021-08-13] MEDS: PSYLLIUM POWDER PACKET 1 PACKET PO ×2 (08:31→20:43)
[2021-08-13] MEDS: FUROSEMIDE INJ 40 MG/4 ML VIAL IV PUSH ×2 (08:32→18:04)
[2021-08-13] MEDS: NEBIVOLOL HCL 5 MG TABLET 10 MG PO (08:32)
[2021-08-13] MEDS: DICYCLOMINE HCL 10 MG CAPSULE BY MOUTH ×4 (08:32→20:43)
--- NOTE | 2021-08-13 10:11 | P.PNIM_ITS ---
Progress Note: A&P Assessment and Plan (1) Hypoxia: Code(s): R09.02 - Hypoxemia Status: Acute Assessment and Plan: Patient presents with abdominal pain and noted to have hypoxia. * ABG 7.39/51/88 on 2 L. * ED note states hypoxia but without distress. * Mildly elevated pCO2 is probably chronic and not acute given the normal pH * May have undiagnosed sleep apnea with ApneaLink showing AHI 13 and RI 13. * Despite being on 2L, she spent 49min with SpO2<88%. * Chest x-ray is consistent with CHF. Cannot exclude pneumonia. Covid negative. * PE less likely given other more obvious findings explain hypoxia. Also no tachycardia * Hypoxia related to CHF exacerbation treated with lasix. * Wean oxygen as tolerated. * Improved (2) Acute on chronic congestive heart failure: Code(s): I50.9 - Heart failure, unspecified Status: Acute Assessment and Plan: Patient presents with abdominal symptoms but noted to have evidence of Acute/Chronic Diastolic CHF exacerbation. * BNP 16K. Chest x-ray consistent with CHF. COVID swab negative. Trop x 1 normal. * Echo showing EF 55-60%, diastolic dysfunction with apical AK and multiple HK areas. * Suspect fluid overload related to recent hospitalization. Related to anemia? Related to ischemia? Follow-up with cardiology * Status post IV Lasix. Fluid restriction. No plan for ischemic cardiac workup during this admission per Cardiology (3) Abdominal pain: Code(s): R10.9 - Unspecified abdominal pain Status: Acute Assessment and Plan: Patient with abdominal pain with associated diarrhea that is longstanding * CT abdomen/pelvis showing colonic fluid and multiple incidental findings but no concerning finding to explain her symptoms. * No liver lesions or other findings to suggest carcinoid. * ESR>140. TIBC low but iron studies otherwise okay. * She does have city water and does filter water making parasites less likely. * GI consulted and appreciate their input * Colonoscopy performed 08/09 showing diverticulosis and polyps which were removed. Path of polyps reviewed. Bx taken. * CDiff negative. Crypto/Girdia negative. Follow up on other stools studies. * GI recommendation appreciated * Feels better after bowel prep. Continue scheduled Bentyl, metamucil and Questran (4) Chronic diarrhea: Code(s): K52.9 - Noninfective gastroenteritis and colitis, unspecified Status: Acute Assessment and Plan: Suspect related to her chronic abdominal pain. As above. (5) Lung infiltrate: Code(s): R91.8 - Other nonspecific abnormal finding of lung field Status: Acute Assessment and Plan: Patient with cough and shortness of breath. * Chest x-ray shows bibasilar predominance of reticulation. CT scan shows scattered bibasilar subsegmental atelectasis with bilateral pleural effusions. Suspect more CHF then PNA * Admitting provider was concerned about pneumonia so aztreonam and vancomycin started for possible HCAP * Leukopenic since admission. See below * Blood cultures NGTD * Feel pneumonia less likely so antibiotics have been held * Repeat CXR noted. * No fevers since admission. Continue to hold abx unless she worsens or starts with fevers (6) Pancytopenia: Code(s): D61.818 - Other pancytopenia Status: Acute Assessment and Plan: Patient presents for abdominal pain found to have pancytopenia * White count 2000 on admission; continue neutropenic precaution * Monocytosis (but normal absolute monocyte levels). * Macrocytic anem
--- NOTE | 2021-08-13 10:11 | PM.IMPN ---
Progress Note: A&P Assessment and Plan (1) Hypoxia: Code(s): R09.02 - Hypoxemia Status: Acute Assessment and Plan: Patient presents with abdominal pain and noted to have hypoxia. ABG 7.39/51/88 on 2 L. ED note states hypoxia but without distress. Mildly elevated pCO2 is probably chronic and not acute given the normal pH May have undiagnosed sleep apnea with ApneaLink showing AHI 13 and RI 13. Despite being on 2L, she spent 49min with SpO2<88%. Chest x-ray is consistent with CHF. Cannot exclude pneumonia. Covid negative. PE less likely given other more obvious findings explain hypoxia. Also no tachycardia Hypoxia related to CHF exacerbation treated with lasix. Wean oxygen as tolerated. Improved (2) Acute on chronic congestive heart failure: Code(s): I50.9 - Heart failure, unspecified Status: Acute Assessment and Plan: Patient presents with abdominal symptoms but noted to have evidence of Acute/Chronic Diastolic CHF exacerbation. BNP 16K. Chest x-ray consistent with CHF. COVID swab negative. Trop x 1 normal. Echo showing EF 55-60%, diastolic dysfunction with apical AK and multiple HK areas. Suspect fluid overload related to recent hospitalization. Related to anemia? Related to ischemia? Follow-up with cardiology Status post IV Lasix. Fluid restriction. No plan for ischemic cardiac workup during this admission per Cardiology (3) Abdominal pain: Code(s): R10.9 - Unspecified abdominal pain Status: Acute Assessment and Plan: Patient with abdominal pain with associated diarrhea that is longstanding CT abdomen/pelvis showing colonic fluid and multiple incidental findings but no concerning finding to explain her symptoms. No liver lesions or other findings to suggest carcinoid. ESR>140. TIBC low but iron studies otherwise okay. She does have city water and does filter water making parasites less likely. GI consulted and appreciate their input Colonoscopy performed 08/09 showing diverticulosis and polyps which were removed. Path of polyps reviewed. Bx taken. CDiff negative. Crypto/Girdia negative. Follow up on other stools studies. GI recommendation appreciated Feels better after bowel prep. Continue scheduled Bentyl, metamucil and Questran (4) Chronic diarrhea: Code(s): K52.9 - Noninfective gastroenteritis and colitis, unspecified Status: Acute Assessment and Plan: Suspect related to her chronic abdominal pain. As above. (5) Lung infiltrate: Code(s): R91.8 - Other nonspecific abnormal finding of lung field Status: Acute Assessment and Plan: Patient with cough and shortness of breath. Chest x-ray shows bibasilar predominance of reticulation. CT scan shows scattered bibasilar subsegmental atelectasis with bilateral pleural effusions. Suspect more CHF then PNA Admitting provider was concerned about pneumonia so aztreonam and vancomycin started for possible HCAP Leukopenic since admission. See below Blood cultures NGTD Feel pneumonia less likely so antibiotics have been held Repeat CXR noted. No fevers since admission. Continue to hold abx unless she worsens or starts with fevers (6) Pancytopenia: Code(s): D61.818 - Other pancytopenia Status: Acute Assessment and Plan: Patient presents for abdominal pain found to have pancytopenia White count 2000 on admission; continue neutropenic precaution Monocytosis (but normal absolute monocyte levels). Macrocytic anemia noted with hemoglobin 9.2 that has dropped to 7.7 Platelet count improved. Smear showing no schistocytes or blasts. Liver/Spleen appear normal. B12/Folate normal. Iron studies normal except for a low TIBC. Consider bone marrow infiltrative process such as monocytosis leukemia; consider chronic autoimmune (ESR>140) Heme Onc consulted and appreciate their input Bone marrow biopsy on Saturday Additional Plan DVT
[2021-08-13] MEDS: CHOLESTYRAMINE (W/ SUGAR) 4 GM POWD.PACK PO (11:12)
--- NOTE | 2021-08-13 13:01 | PCPTNOTE ---
Attempted PT treatment; not completed at this time due to patient c/o pressure in her chest but states it's not too bad . RN notified of patient's complaints.
--- NOTE | 2021-08-13 15:34 | PC.NURSE ---
This patient, Christina Dahl, was transferred to [[id number] ] on 08/13/21 at 1534. Personal belongings sent with patient. Appropriate documentation sent with patient.
[2021-08-14] VITALS (12 sets, daily range): BP systolic 101–151; BP diastolic 44–51; PULSE 63–84; RESP 16–18; TEMP 36.4–36.7; O2SAT 92–98
[2021-08-14] MEDS: NITROGLYCERIN OINTMENT 1 INCH DOSE TRANSDERM ×2 (00:10→06:12)
[2021-08-14 06:28] LABS: Eosinophils Absolute Auto 0.1 K/mm3 (0-0.3); Eosinophils Percent Auto 3.5 % (0-4.4); Hematocrit 27.3 % (37.0-47.0); Hemoglobin 8.8 g/dL (12.0-15.0); Immature Granulocyte Absolute 0.02 K/mm3 (0.00-0.031); Immature Platelet Fraction Pct 3.2 % (0.9-11.2); Lymphocytes Absolute Auto 0.51 K/mm3 (0.9-3.2); Lymphocytes Percent Auto 25.8 % (18.3-44.2); Mean Corpuscular HGB Conc 32.2 g/dl (32-36); Mean Corpuscular Hemoglobin 32.5 pg (26-34); Mean Corpuscular Volume 100.7 fl (80-100); Mean Platelet Volume 10.6 fl (7.4-10.4); Monocytes Absolute Auto 0.3 K/mm3 (0.1-0.6); Monocytes Percent Auto 17.2 % (2.6-8.5); Neutrophils Percent Auto 52.5 % (45.5-73.1); Platelet Count Result 143 k/mm3 (150-375); Red Blood Count 2.71 M/mm3 (4.2-5.4); Red Cell Distribution Width 16.3 % (11.5-14.5)
[2021-08-14 06:38] LABS: Alanine Aminotransferase 16 U/L (4-35); Albumin Level 2.8 g/dL (3.5-5.1); Alkaline Phosphatase 57 U/L (38-126); Anion Gap 4 mmol/L (8-16); Aspartate Amino Transferase 36 U/L (14-36); Bilirubin,Total 0.7 mg/dL (0.2-1.3); Blood Urea Nitrogen 22 mg/dL (7-17); Calcium 7.7 mg/dL (8.4-10.2); Carbon Dioxide 39 mmol/L (22-30); Chloride 92 mmol/L (98-107); Estimated Glomerular Filt Rate > 60; Glucose 109 mg/dL (65-110); Potassium 3.2 mmol/L (3.4-5.0); Sodium 135 mmol/L (137-145)
[2021-08-14] MEDS: NEBIVOLOL HCL 5 MG TABLET 10 MG PO (10:06)
--- NOTE | 2021-08-14 10:15 | PCOTNOTE ---
Attempted to see patient this am, however MD exiting room at this time stating, She's gonna go down for a bone marrow right now. Pt not seen for this reason.
--- NOTE | 2021-08-14 10:41 | PCPTNOTE ---
The patient treatment was not able to be completed this A.M. due to patient out of room for test/procedure. Will plan to continue treatment per plan of care.
--- NOTE | 2021-08-14 11:28 | PC.NURSE ---
PT at fluroscopic bone marrow aspiration.
[2021-08-14] MEDS: PSYLLIUM POWDER PACKET 1 PACKET PO (11:59)
[2021-08-14] MEDS: CHOLESTYRAMINE (W/ SUGAR) 4 GM POWD.PACK PO (11:59)
[2021-08-14] MEDS: FUROSEMIDE INJ 40 MG/4 ML VIAL IV PUSH (11:59)
[2021-08-14] MEDS: POTASSIUM CHLORIDE 20 MEQ PACKET (FOR LIQUID) 40 MEQ PO (12:01)
[2021-08-14 12:11] LABS: Anti Cyclic Citrullinated Pept <16 Units (<20)
--- NOTE | 2021-08-14 13:45 | PM.PNCARD ---
Progress Note: A&P Additional Plan 80-year-old lady with chronically implanted pacemaker with follow-up elsewhere as mentioned previous notes. Patient is admitted with longstanding abdominal discomfort diarrhea and also found to have pancytopenia. These noncardiac issues are being evaluated by the primary team and heme Onc consultants. Patient anticipating bone marrow biopsy today. Again no active cardiovascular problems. As I mentioned in my previous notes given her lack of symptoms age, frailty and DNR status I do not anticipate conducting an ischemia workup during this admission. As such I am going to sign off of her care at this time. If she develops cardiac issues/ concerns while she the hospital please do not hesitate to call us. If not she will follow-up with her established manager of care regarding her pacemaker device. Armen Neumann MD [facility] Subjective Date/time seen: 08/14/21 13:45 Interval history: Follow-up visit in this 80-year-old woman with: History of chronically implanted electronic dual-chamber pacemaker and followed by cardiologists up in [place]. Patient was admitted to this hospital with abdominal pain, diarrhea which has been going on for quite a while also found to be anemic and neutropenic. Does not describe any specific cardiac complaints. Telemetry demonstrates dual-chamber electronic pacing date of service 08/14/2021: Patient without any cardiovascular complaints today. Scheduled for bone marrow biopsy in the [employer] to evaluate pancytopenia. Exam Narrative: Alert oriented. Appears stated age Const: General: comfortable and no acute distress HENMT: General nose exam: Normal nares present Mouth: Yes moist mucous membranes Eyes: Sclera: sclerae normal Neck: Neck: supple and no JVD Chest: Other: No reproducible chest wall pain to palpation Resp: Effort & Inspection: normal respiratory effort Auscultation: clear to auscultation bilaterally, crackles and diminished lung sounds Cardio: Rate: regular rate Rhythm: regular rhythm Other: Soft systolic murmur at the left sternal border GI: Inspection: distended Skin: General skin exam: normal color Neuro: Cranial nerves: Yes Normal hearing present Cognition (Neuro): normal cognition Speech: normal speech Extrem: General: edema Psych: Mental Status: mental status grossly normal Objective Data Vital Signs Vital Signs: Vital Signs - 24 hr 08/13/21 15:44 08/13/21 20:00 08/14/21 00:00 Temperature 36.1 C L Pulse Rate 65 73 66 Respiratory Rate 18 Blood Pressure 141/43 H Pulse Oximetry 100 98 08/14/21 00:14 08/14/21 04:00 08/14/21 08:00 Temperature Pulse Rate 67 70 Respiratory Rate 18 Blood Pressure 131/46 L Pulse Oximetry 98 08/14/21 10:05 08/14/21 10:06 Temperature Pulse Rate 70 70 Respiratory Rate Blood Pressure 151/51 H Pulse Oximetry Intake/Output Intake/Output: Intake & Output 08/11/21 08/12/21 08/13/21 08/14/21 23:59 23:59 23:59 23:59 Intake Total 1340 1360 290 240 Output Total 2650 925 900 200 Balance -1310 435 -610 40 Meds/Results Medications: Active Medications Generic Name Dose Route Start Last Admin Trade Name Freq PRN Reason Stop Dose Admin Acetaminophen 650 mg 08/14/21 11:50 Acetaminophen 325 Mg Tablet PO Q4H PRN Headache Cholestyramine Resin 4 gm 08/10/21 11:00 08/14/21 11:59 Cholestyramine (W/ Sugar) 4 Gm Powd.Pack PO 4 gm QAM@1100 WILLIAM Administration Furosemide 40 mg 08/15/21 09:00 Furosemide 40 Mg Tablet PO DAILY WILLIAM Lisinopril 10 mg 08/15/21 09:00 Lisinopril 10 Mg Tablet PO DAILY WILLIAM Nebivolol 10 mg 08/08/21 09:00 08/14/21 10:06 Nebivolol Hcl 5 Mg Tablet PO 10 mg DAILY WILLIAM Administration Neomycin/Polymyxin/Bacitracin 1 applic 08/10/21 18:06 Neomycin/Polymyxin/Bacitracin Ointment 15 Gm Tube TOPICAL PRN PRN with dressing changes Psyllium Hydrophilic Muc
--- NOTE | 2021-08-14 16:21 | P.PNIM_ITS ---
Progress Note: A&P Assessment and Plan (1) Hypoxia: Code(s): R09.02 - Hypoxemia Status: Acute Assessment and Plan: Patient presents with abdominal pain and noted to have hypoxia. * ABG 7.39/51/88 on 2 L. * ED note states hypoxia but without distress. * Mildly elevated pCO2 is probably chronic and not acute given the normal pH * May have undiagnosed sleep apnea with ApneaLink showing AHI 13 and RI 13. * Despite being on 2L, she spent 49min with SpO2<88%. * Chest x-ray is consistent with CHF but cannot exclude pneumonia but felt less likely. Covid negative. * PE less likely given other more obvious findings explain hypoxia. Also no tachycardia * Hypoxia related to CHF exacerbation treated with lasix and untreated DAQUAN * Wean oxygen as tolerated while awake. Continue O2 with 3L at night and we naps. * Improved overall (2) Acute on chronic congestive heart failure: Code(s): I50.9 - Heart failure, unspecified Status: Acute Assessment and Plan: Patient presents with abdominal symptoms but noted to have evidence of Acute/Chronic Diastolic CHF exacerbation. * BNP 16K. Chest x-ray consistent with CHF. COVID swab negative. Trop x 1 normal. * Echo showing EF 55-60%, diastolic dysfunction with apical AK and multiple HK areas. * Suspect fluid overload related to recent hospitalization. Related to anemia? Related to ischemia? Follow-up with cardiology * Treated with IV Lasix. Fluid restriction. No plan for ischemic cardiac workup during this admission per Cardiology * Change to oral Lasix and advance the dose. Stop NTP. (3) Abdominal pain: Code(s): R10.9 - Unspecified abdominal pain Status: Acute Assessment and Plan: Patient with abdominal pain with associated diarrhea that is longstanding * CT abdomen/pelvis showing colonic fluid and multiple incidental findings but no concerning finding to explain her symptoms. * No liver lesions or other findings to suggest carcinoid. * ESR>140. TIBC low but iron studies otherwise okay. * She does have city water and does filter water making parasites less likely. * GI consulted and appreciate their input * Colonoscopy performed 08/09 showing diverticulosis and polyps which were removed and biopsies taken * Pathology reports of polyps and random biopsies. reviewed * CDiff negative. Crypto/Girdia negative. Follow up on other stools studies. * GI recommendation appreciated * Feels better overall. Continue scheduled Metamucil and Questran. Bentyl stopped yesterday (4) Chronic diarrhea: Code(s): K52.9 - Noninfective gastroenteritis and colitis, unspecified Status: Acute Assessment and Plan: Suspect related to her chronic abdominal pain. As above. (5) Lung infiltrate: Code(s): R91.8 - Other nonspecific abnormal finding of lung field Status: Acute Assessment and Plan: Patient with cough and shortness of breath. * Chest x-ray shows bibasilar predominance of reticulation. CT scan shows scattered bibasilar subsegmental atelectasis with bilateral pleural effusions. Suspect more CHF then PNA but consider ILD related to above * Admitting provider was concerned about pneumonia so aztreonam and vancomycin started for possible HCAP * Leukopenic since admission. See below * Blood cultures NGTD * Feel pneumonia less likely so antibiotics have been held * Repeat CXR 08/10 noted. * No fevers since admission. Continue to hold abx unless she worsens or starts with fevers (6) Pancytopenia: Code(s): D61.818 - Other pancytopenia
--- NOTE | 2021-08-14 16:21 | PM.IMPN ---
Progress Note: A&P Assessment and Plan (1) Hypoxia: Code(s): R09.02 - Hypoxemia Status: Acute Assessment and Plan: Patient presents with abdominal pain and noted to have hypoxia. ABG 7.39/51/88 on 2 L. ED note states hypoxia but without distress. Mildly elevated pCO2 is probably chronic and not acute given the normal pH May have undiagnosed sleep apnea with ApneaLink showing AHI 13 and RI 13. Despite being on 2L, she spent 49min with SpO2<88%. Chest x-ray is consistent with CHF but cannot exclude pneumonia but felt less likely. Covid negative. PE less likely given other more obvious findings explain hypoxia. Also no tachycardia Hypoxia related to CHF exacerbation treated with lasix and untreated DAQUAN Wean oxygen as tolerated while awake. Continue O2 with 3L at night and we naps. Improved overall (2) Acute on chronic congestive heart failure: Code(s): I50.9 - Heart failure, unspecified Status: Acute Assessment and Plan: Patient presents with abdominal symptoms but noted to have evidence of Acute/Chronic Diastolic CHF exacerbation. BNP 16K. Chest x-ray consistent with CHF. COVID swab negative. Trop x 1 normal. Echo showing EF 55-60%, diastolic dysfunction with apical AK and multiple HK areas. Suspect fluid overload related to recent hospitalization. Related to anemia? Related to ischemia? Follow-up with cardiology Treated with IV Lasix. Fluid restriction. No plan for ischemic cardiac workup during this admission per Cardiology Change to oral Lasix and advance the dose. Stop NTP. (3) Abdominal pain: Code(s): R10.9 - Unspecified abdominal pain Status: Acute Assessment and Plan: Patient with abdominal pain with associated diarrhea that is longstanding CT abdomen/pelvis showing colonic fluid and multiple incidental findings but no concerning finding to explain her symptoms. No liver lesions or other findings to suggest carcinoid. ESR>140. TIBC low but iron studies otherwise okay. She does have city water and does filter water making parasites less likely. GI consulted and appreciate their input Colonoscopy performed 08/09 showing diverticulosis and polyps which were removed and biopsies taken Pathology reports of polyps and random biopsies. reviewed CDiff negative. Crypto/Girdia negative. Follow up on other stools studies. GI recommendation appreciated Feels better overall. Continue scheduled Metamucil and Questran. Bentyl stopped yesterday (4) Chronic diarrhea: Code(s): K52.9 - Noninfective gastroenteritis and colitis, unspecified Status: Acute Assessment and Plan: Suspect related to her chronic abdominal pain. As above. (5) Lung infiltrate: Code(s): R91.8 - Other nonspecific abnormal finding of lung field Status: Acute Assessment and Plan: Patient with cough and shortness of breath. Chest x-ray shows bibasilar predominance of reticulation. CT scan shows scattered bibasilar subsegmental atelectasis with bilateral pleural effusions. Suspect more CHF then PNA but consider ILD related to above Admitting provider was concerned about pneumonia so aztreonam and vancomycin started for possible HCAP Leukopenic since admission. See below Blood cultures NGTD Feel pneumonia less likely so antibiotics have been held Repeat CXR 08/10 noted. No fevers since admission. Continue to hold abx unless she worsens or starts with fevers (6) Pancytopenia: Code(s): D61.818 - Other pancytopenia Status: Acute Assessment and Plan: Patient presents for abdominal pain found to have pancytopenia White count 2000 on admission and WBC remains low; continue neutropenic precaution Monocytosis (but normal absolute monocyte levels). Macrocytic anemia noted with hemoglobin 9.2 that has dropped to mostly 8 range Platelet count mildly low at times but overall stable Smear showing no schistocytes or blasts.
[2021-08-14] MEDS: ACETAMINOPHEN 325 MG TABLET 650 MG PO (20:02)
[2021-08-15] VITALS (7 sets, daily range): BP systolic 110–127; BP diastolic 42–47; PULSE 64–78; RESP 16; TEMP 35.8–37.9; O2SAT 91–100
[2021-08-15 06:34] LABS: Basophils Percent Auto 0.4 % (0.2-1.2); Eosinophils Percent Auto 1.7 % (0-4.4); Hematocrit 26.5 % (37.0-47.0); Hemoglobin 8.4 g/dL (12.0-15.0); Immature Granulocyte Absolute 0.02 K/mm3 (0.00-0.031); Immature Granulocyte Percent A 0.8 % (0-0.5); Immature Platelet Fraction Pct 3.7 % (0.9-11.2); Lymphocytes Absolute Auto 0.48 K/mm3 (0.9-3.2); Lymphocytes Percent Auto 20.3 % (18.3-44.2); Mean Corpuscular HGB Conc 31.7 g/dl (32-36); Mean Corpuscular Hemoglobin 32.7 pg (26-34); Mean Corpuscular Volume 103.1 fl (80-100); Mean Platelet Volume 10.2 fl (7.4-10.4); Monocytes Absolute Auto 0.6 K/mm3 (0.1-0.6); Monocytes Percent Auto 23.3 % (2.6-8.5); Neutrophils Absolute Auto 1.3 K/mm3 (1.3-6.7); Neutrophils Percent Auto 53.5 % (45.5-73.1); Platelet Count Result 119 k/mm3 (150-375); Red Blood Count 2.57 M/mm3 (4.2-5.4); Red Cell Distribution Width 16.6 % (11.5-14.5); White Blood Count 2.4 K/mm3 (4.5-10.0)
[2021-08-15 06:51] LABS: Alanine Aminotransferase 16 U/L (4-35); Albumin Level 2.6 g/dL (3.5-5.1); Alkaline Phosphatase 63 U/L (38-126); Aspartate Amino Transferase 33 U/L (14-36); Bilirubin,Total 0.6 mg/dL (0.2-1.3); Blood Urea Nitrogen 21 mg/dL (7-17); Calcium 7.7 mg/dL (8.4-10.2); Carbon Dioxide > 40 mmol/L (22-30); Chloride 94 mmol/L (98-107); Estimated Glomerular Filt Rate 60; Glucose 90 mg/dL (65-110); Potassium 3.6 mmol/L (3.4-5.0); Sodium 137 mmol/L (137-145)
[2021-08-15 07:40] LABS: Anisocytosis 1+ (NORMAL); Ovalocytes 1+ (NORMAL); Platelet Estimate Decreased (Adequate)
[2021-08-15 07:54] LABS: Immunoglobulin G 1528 mg/dL (700-1600); Immunoglobulin M 87 mg/dL (40-230)
[2021-08-15 08:10] LABS: Immunoglobulin A 823 mg/dL (70-400)
[2021-08-15] MEDS: NEBIVOLOL HCL 5 MG TABLET 10 MG PO (08:27)
[2021-08-15] MEDS: PSYLLIUM POWDER PACKET 1 PACKET PO ×2 (08:28→22:38)
[2021-08-15] MEDS: lisinopriL 10 MG TABLET PO (08:28)
[2021-08-15] MEDS: FUROSEMIDE 40 MG TABLET PO (08:28)
[2021-08-15] MEDS: ACETAMINOPHEN 325 MG TABLET 650 MG PO (09:05)
[2021-08-15] MEDS: CHOLESTYRAMINE (W/ SUGAR) 4 GM POWD.PACK PO (12:21)
[2021-08-15 12:45] LABS: EDCOVIDSCREEN Negative (Negative)
--- NOTE | 2021-08-15 13:38 | P.DS_ITS ---
DS: Admitting Diagnosis Discharge Date 08/15/21 Admitting Diagnosis Abdominal pain DS: Discharge Diagnosis Discharge Diagnosis (1) Hypoxia: Code(s): R09.02 - Hypoxemia Status: Acute Assessment and Plan: Patient presents with abdominal pain and noted to have hypoxia. * ABG 7.39/51/88 on 2 L. * ED note states hypoxia but without distress. * Mildly elevated pCO2 is probably chronic and not acute given the normal pH * May have undiagnosed sleep apnea with ApneaLink showing AHI 13 and RI 13. * Despite being on 2L, she spent 49min with SpO2<88%. * Chest x-ray is consistent with CHF but cannot exclude pneumonia but felt less likely. Covid was negative. * PE less likely given other more obvious findings explain hypoxia. Also no tachycardia * Hypoxia related to CHF exacerbation treated with lasix and related to untreated DAQUAN * Weaned oxygen off during the day. We increased her to 3L O2 at night. Repeat Apnea on the 3L was incomplete. * Continue O2 with 3L at night and with naps. * Improved overall. Will need official sleep study (2) Acute on chronic congestive heart failure: Code(s): I50.9 - Heart failure, unspecified Status: Acute Assessment and Plan: Patient presents with abdominal symptoms but noted to have evidence of Acute/Chronic Diastolic CHF exacerbation. * BNP 16K. Chest x-ray consistent with CHF. COVID swab negative. Trop x 1 normal. * Echo showing EF 55-60%, diastolic dysfunction with apical AK and multiple HK areas. * Suspect fluid overload related to recent hospitalization. Related to anemia? Related to ischemia? Follow-up with cardiology * Treated with IV Lasix. Fluid restriction. No plan for ischemic cardiac workup during this admission per Cardiology * Changed to oral Lasix (3) Abdominal pain: Code(s): R10.9 - Unspecified abdominal pain Status: Acute Assessment and Plan: Patient with abdominal pain with associated diarrhea that is longstanding * CT abdomen/pelvis showing colonic fluid and multiple incidental findings but no concerning finding to explain her symptoms. * No liver lesions or other findings to suggest carcinoid. * ESR>140. TIBC low but iron studies otherwise okay. * She does have city water and does filter water making parasites less likely. * GI consulted and appreciate their input * Colonoscopy performed 08/09 showing diverticulosis and polyps which were removed and biopsies taken * Pathology reports of polyps and random biopsies were reviewed * CDiff negative. Crypto/Girdia negative. No stool WBC. * GI recommendation appreciated * Treated with scheduled Metamucil and Questran. Bentyl available as needed * Feels better overall but still was having episodes and GI recommended Rifaximin 550mg TID x 2 weeks and Fibercon. (4) Chronic diarrhea: Code(s): K52.9 - Noninfective gastroenteritis and colitis, unspecified Status: Acute Assessment and Plan: Suspect related to her chronic abdominal pain. As above. (5) Lung infiltrate: Code(s): R91.8 - Other nonspecific abnormal finding of lung field Status: Acute Assessment and Plan: Patient with cough and shortness of breath. * Chest x-ray shows bibasilar predominance of reticulation. CT scan shows scattered bibasilar subsegmental atelectasis with bilateral pleural effusions. * Admitting provider was concerned about pneumonia so aztreonam and vancomycin started for possible HCAP * Leukopenic since admission. See below * Blood cultures negative. No fevers documente
--- NOTE | 2021-08-15 13:38 | PM.DS ---
DS: Admitting Diagnosis Discharge Date 08/15/21 Admitting Diagnosis Abdominal pain DS: Discharge Diagnosis Discharge Diagnosis (1) Hypoxia: Code(s): R09.02 - Hypoxemia Status: Acute Assessment and Plan: Patient presents with abdominal pain and noted to have hypoxia. ABG 7.39/51/88 on 2 L. ED note states hypoxia but without distress. Mildly elevated pCO2 is probably chronic and not acute given the normal pH May have undiagnosed sleep apnea with ApneaLink showing AHI 13 and RI 13. Despite being on 2L, she spent 49min with SpO2<88%. Chest x-ray is consistent with CHF but cannot exclude pneumonia but felt less likely. Covid was negative. PE less likely given other more obvious findings explain hypoxia. Also no tachycardia Hypoxia related to CHF exacerbation treated with lasix and related to untreated DAQUAN Weaned oxygen off during the day. We increased her to 3L O2 at night. Repeat Apnea on the 3L was incomplete. Continue O2 with 3L at night and with naps. Improved overall. Will need official sleep study (2) Acute on chronic congestive heart failure: Code(s): I50.9 - Heart failure, unspecified Status: Acute Assessment and Plan: Patient presents with abdominal symptoms but noted to have evidence of Acute/Chronic Diastolic CHF exacerbation. BNP 16K. Chest x-ray consistent with CHF. COVID swab negative. Trop x 1 normal. Echo showing EF 55-60%, diastolic dysfunction with apical AK and multiple HK areas. Suspect fluid overload related to recent hospitalization. Related to anemia? Related to ischemia? Follow-up with cardiology Treated with IV Lasix. Fluid restriction. No plan for ischemic cardiac workup during this admission per Cardiology Changed to oral Lasix (3) Abdominal pain: Code(s): R10.9 - Unspecified abdominal pain Status: Acute Assessment and Plan: Patient with abdominal pain with associated diarrhea that is longstanding CT abdomen/pelvis showing colonic fluid and multiple incidental findings but no concerning finding to explain her symptoms. No liver lesions or other findings to suggest carcinoid. ESR>140. TIBC low but iron studies otherwise okay. She does have city water and does filter water making parasites less likely. GI consulted and appreciate their input Colonoscopy performed 08/09 showing diverticulosis and polyps which were removed and biopsies taken Pathology reports of polyps and random biopsies were reviewed CDiff negative. Crypto/Girdia negative. No stool WBC. GI recommendation appreciated Treated with scheduled Metamucil and Questran. Bentyl available as needed Feels better overall but still was having episodes and GI recommended Rifaximin 550mg TID x 2 weeks and Fibercon. (4) Chronic diarrhea: Code(s): K52.9 - Noninfective gastroenteritis and colitis, unspecified Status: Acute Assessment and Plan: Suspect related to her chronic abdominal pain. As above. (5) Lung infiltrate: Code(s): R91.8 - Other nonspecific abnormal finding of lung field Status: Acute Assessment and Plan: Patient with cough and shortness of breath. Chest x-ray shows bibasilar predominance of reticulation. CT scan shows scattered bibasilar subsegmental atelectasis with bilateral pleural effusions. Admitting provider was concerned about pneumonia so aztreonam and vancomycin started for possible HCAP Leukopenic since admission. See below Blood cultures negative. No fevers documented Feel pneumonia less likely so antibiotics have been held Suspect more CHF then PNA but consider ILD related to above (6) Pancytopenia: Code(s): D61.818 - Other pancytopenia Status: Acute Assessment and Plan: Patient presents for abdominal pain found to have pancytopenia White count 2000 on admission and WBC remains low; continue neutropenic precaution Macrocytic anemia noted with hemoglobin 9.2
[2021-08-15] MEDS: calcium polycarbophiL 625 MG TABLET PO (15:50)
[2021-08-15] MEDS: rifAXIMin 550 MG TABLET PO ×2 (15:51→22:38)
[2021-08-15] MEDS: NEOMYCIN/POLYMYXIN/BACITRACIN OINTMENT 15 GM TUBE 1 APPLIC TOPICAL (15:53)
[2021-08-15] MEDS: DICYCLOMINE HCL 10 MG CAPSULE PO ×2 (17:36→22:39)
[2021-08-16] MEDS: rifAXIMin 550 MG TABLET PO (05:40)
[2021-08-16 05:53] VITALS: BP 109/49; PULSE 84; RESP 16; TEMP 36.6; O2SAT 95
[2021-08-16 06:37] LABS: Eosinophils Percent Auto 0.4 % (0-4.4); Hematocrit 29.1 % (37.0-47.0); Hemoglobin 9.3 g/dL (12.0-15.0); Immature Granulocyte Absolute 0.03 K/mm3 (0.00-0.031); Immature Granulocyte Percent A 1.2 % (0-0.5); Immature Platelet Fraction Pct 4.1 % (0.9-11.2); Lymphocytes Absolute Auto 0.72 K/mm3 (0.9-3.2); Lymphocytes Percent Auto 28.8 % (18.3-44.2); Mean Corpuscular Hemoglobin 32.7 pg (26-34); Mean Corpuscular Volume 102.5 fl (80-100); Mean Platelet Volume 11.1 fl (7.4-10.4); Monocytes Absolute Auto 0.4 K/mm3 (0.1-0.6); Monocytes Percent Auto 17.2 % (2.6-8.5); Neutrophils Absolute Auto 1.3 K/mm3 (1.3-6.7); Neutrophils Percent Auto 52.4 % (45.5-73.1); Platelet Count Result 135 k/mm3 (150-375); Red Blood Count 2.84 M/mm3 (4.2-5.4); Red Cell Distribution Width 16.7 % (11.5-14.5); White Blood Count 2.5 K/mm3 (4.5-10.0)
[2021-08-16 06:46] LABS: Alanine Aminotransferase 15 U/L (4-35); Albumin Level 2.7 g/dL (3.5-5.1); Alkaline Phosphatase 61 U/L (38-126); Anion Gap 5 mmol/L (8-16); Aspartate Amino Transferase 30 U/L (14-36); Bilirubin,Total 0.6 mg/dL (0.2-1.3); Blood Urea Nitrogen 25 mg/dL (7-17); Calcium 7.6 mg/dL (8.4-10.2); Carbon Dioxide 32 mmol/L (22-30); Chloride 96 mmol/L (98-107); Estimated Glomerular Filt Rate 60; Glucose 110 mg/dL (65-110); Potassium 3.6 mmol/L (3.4-5.0); Sodium 133 mmol/L (137-145)
[2021-08-16 07:35] LABS: Atypical Lymphocytes Present; Platelet Estimate Adequate (Adequate)
[2021-08-16 07:36] LABS: Acanthocytes 1+ (NORMAL); Ovalocytes 1+ (NORMAL)
[2021-08-16] MEDS: PSYLLIUM POWDER PACKET 1 PACKET PO (08:30)
[2021-08-16] MEDS: DICYCLOMINE HCL 10 MG CAPSULE PO (08:30)
[2021-08-16 08:31] VITALS: PULSE 79
[2021-08-16] MEDS: NEBIVOLOL HCL 5 MG TABLET 10 MG PO (08:31)
[2021-08-16] MEDS: calcium polycarbophiL 625 MG TABLET PO (08:33)
[2021-08-16] MEDS: lisinopriL 10 MG TABLET PO (08:34)
[2021-08-16 08:40] VITALS: BP 125/58; PULSE 74; RESP 18; TEMP 36.4; O2SAT 92
[2021-08-16 09:09] VITALS: O2SAT 95
--- NOTE | 2021-08-17 09:49 | PC.NURSE ---
O&P- negative. Celiac results shown to Dr. Shahid
== END 2021-08-16 10:47 | DRG 291 ==
LOC: ANHED 20:01 → ANHIMU 23:02 → ANH3MEDSUR 08-14 23:37 → ANHIMU 08-17 09:41
PROVIDERS: Internal Medicine; Internal Medicine Gastroenterology; Radiology Diagnostic Radiology; Admitting Provider Internal Medicine; Emergency Provider Nurse Practitioner Family; PCP Family Medicine; Visit Provider Internal Medicine
PROC: 0DJD8ZZ Inspection of Lower Intestinal Tract, Via Natural or Artificial Opening Endoscopic (ICD-10-PCS; CPT 45330; principal; 2021-08-09 13:15)
DX: I50.33 Acute on chronic diastolic (congestive) heart failure (principal); J96.21 Acute and chronic respiratory failure with hypoxia; J96.22 Acute and chronic respiratory failure with hypercapnia; D61.818 Other pancytopenia; G47.33 Obstructive sleep apnea (adult) (pediatric); D12.3 Benign neoplasm of transverse colon; D12.0 Benign neoplasm of cecum; K52.9 Noninfective gastroenteritis and colitis, unspecified; K57.30 Diverticulosis of large intestine without perforation or abscess without bleeding; R91.8 Other nonspecific abnormal finding of lung field; Z20.822 Contact with and (suspected) exposure to COVID-19; D72.819 Decreased white blood cell count, unspecified; M45.9 Ankylosing spondylitis of unspecified sites in spine; E66.9 Obesity, unspecified; Z68.35 Body mass index [BMI] 35.0-35.9, adult; Z87.891 Personal history of nicotine dependence; Z95.0 Presence of cardiac pacemaker
CPT/HCPCS: 36415; 36600; 38222; 51702; 71045; 71046; 74177; 80048; 80053; 80069; 81001; 81219; 81270; 81402; 81403; 81479; 82274; 82570; 82607; 82728; 82746; 82784; 82805; 83010; 83516; 83540; 83550; 83615; 83690; 83735; 83880; 84100; 84155; 84156; 84165; 84166; 84439; 84443; 84480; 84484; 85025; 85046; 85055; 85610; 85652; 85730; 86038; 86140; 86200; 86255; 86430; 86880; 87040; 87045; 87177; 87209; 87269; 87272; 87426; 87427; 87493; 88184; 88185; 88305; 88311; 88313; 88341; 88342; 88360; 88364; 88365; 89055; 93005; 94762; 96360; 96361; 96372; 97110; 97161; 97165; 97530; 97535; 99285; A9270; C8929; C9803; J0500; J1642; J1940; J2250; J2370; J3010; J3370; J3475; J7030; J7120; Q9957; Q9967; U0003; U0005